=== PATIENT | female | born 1945 | race Caucasian/White ===

== ENCOUNTER 2017-10-10 08:58 | Emergency (ER) | payer MEDICARE ==
[2017-10-10 09:59] LABS: BASO # 0.1 10^3/uL (0.0-0.2); BASO % 0.5 % (0.0-1.0); EOS # 0.1 10^3/uL (0.0-0.50); EOS % 0.6 % (0.0-3.0); HEMATOCRIT 38.5 % (36.0-47.0); HEMOGLOBIN 12.3 g/dl (12.0-15.5); IMMATURE GRANULOCYTE % 0.4 % (0-3.0); LYMPH # 0.4 10^3/uL (1.5-4.5); LYMPH % 4.5 % (24.0-44.0); MEAN CORPUSCULAR HEMOGLOBIN 29.4 pg (27.0-33.0); MEAN CORPUSCULAR HGB CONC 31.9 g/dl (32.0-36.5); MEAN CORPUSCULAR VOLUME 91.9 fl (80.0-96.0); MONO % 11.1 % (0.0-5.0); NEUTROPHILS # 7.7 10^3/uL (1.8-7.7); NEUTROPHILS % 82.9 % (36.0-66.0); PLATELET COUNT, AUTOMATED 246 10^3/uL (150-450); RED BLOOD COUNT 4.19 10^6/uL (4.00-5.40); RED CELL DISTRIBUTION WIDTH 15.9 % (11.5-14.5); WHITE BLOOD COUNT 9.3 10^3/uL (4.0-10.0)
[2017-10-10 10:12] LABS: INR 1.11; PARTIAL THROMBOPLASTIN TIME 24.1 SECONDS (25.4-37.6); PROTHROMBIN TIME 14.4 SECONDS (12.1-14.4)
[2017-10-10 10:18] LABS: ANION GAP 10 MEQ/L (8-16); BLOOD UREA NITROGEN 20 MG/DL (7-18); CALCIUM LEVEL 9.6 MG/DL (8.8-10.2); CARBON DIOXIDE LEVEL 21 MEQ/L (21-32); CHLORIDE LEVEL 112 MEQ/L (98-107); CREATININE FOR GFR 1.31 MG/DL (0.55-1.30); GLOMERULAR FILTRATION RATE 42.5 (>39); GLUCOSE, FASTING 126 MG/DL (70-100); SODIUM LEVEL 143 MEQ/L (136-145)
[2017-10-10] MEDS: RIVAROXABAN 15 MG TAB (XARELTO) PO (12:03)
== END 2017-10-10 12:07 | disposition home or self-care (01) ==
LOC: M ED 08:58
DX: I80.221 Phlebitis and thrombophlebitis of right popliteal vein (principal); I10 Essential (primary) hypertension; M06.9 Rheumatoid arthritis, unspecified; E78.9 Disorder of lipoprotein metabolism, unspecified; Z86.73 Personal history of transient ischemic attack (TIA), and cerebral infarction without residual deficits; Z88.0 Allergy status to penicillin; Z91.041 Radiographic dye allergy status; Z79.899 Other long term (current) drug therapy; Z79.82 Long term (current) use of aspirin
CPT/HCPCS: 93971

== ENCOUNTER 2018-10-23 14:41 | Emergency (ER) | payer MEDICARE ==
[~2018-10-23 14:41] MED LIST: ALEN70TA74 PO; ASPI81TA85 PO; ATOR1TAB19 PO; COLA100C5 PO; FOLI400T PO; LOSA50TA88 PO; METH2.5T48 PO; RISP1SS PO; VITA50005 PO; XARE15TA PO
[2018-10-23] MEDS ORDERED: ONDANSETRON 4MG/2ML VIAL (J2405) IV ONE (15:15)
--- NOTE | 2018-10-23 15:50 | REP ---
Portable chest, 03:24 p.m., single AP view with the the patient sitting: Comparison is 07/17/2009. The lung foster are clear. The cardiac size is normal. The lopez, mediastinum, and skeletal structures are unremarkable. Impression: Negative portable chest. Electronically Signed by Steven Major MD 10/23/2018 03:41 P
--- NOTE | 2018-10-23 15:52 | REP ---
CT of the head without contrast Indication: Vertigo. Comparison: Head CT of 07/17/2009. Technique: Axial CT of the head was performed without contrast. Findings: There is no visible soft tissue swelling or calvarial fracture. There is no evidence of acute intracranial hemorrhage or extra-axial fluid collection. There is right greater than left posterior parietal and occipital encephalomalacia related to remote insult, but new since 2009. Hyperdensity along the left MCA, likely vascular calcification. There is no mass effect or midline shift. The basal cisterns are patent. There is no hydrocephalus. The visualized paranasal sinuses and mastoid air cells are clear. Impression: No acute intracranial hemorrhage or hydrocephalus. 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 Electronically Signed by Jose Rose MD 10/23/2018 03:44 P
[2018-10-23] MEDS ORDERED: LOSA100T50 PO (16:02)
[2018-10-23 16:56] LABS: BASO # 0.1 10^3/uL (0.0-0.2); EOS # 0.2 10^3/uL (0.0-0.50); EOS % 2.6 % (0.0-3.0); HEMATOCRIT 40.1 % (36.0-47.0); HEMOGLOBIN 13.2 g/dl (12.0-15.5); LYMPH # 0.7 10^3/uL (1.5-4.5); LYMPH % 11.7 % (24.0-44.0); MEAN CORPUSCULAR HEMOGLOBIN 31.9 pg (27.0-33.0); MEAN CORPUSCULAR HGB CONC 32.9 g/dl (32.0-36.5); MEAN CORPUSCULAR VOLUME 96.9 fl (80.0-96.0); MONO # 0.6 10^3/uL (0.0-0.8); MONO % 10.4 % (0.0-5.0); NEUTROPHILS # 4.6 10^3/uL (1.8-7.7); PLATELET COUNT, AUTOMATED 170 10^3/uL (150-450); RED BLOOD COUNT 4.14 10^6/uL (4.00-5.40); WHITE BLOOD COUNT 6.2 10^3/uL (4.0-10.0)
[2018-10-23 17:15] LABS: INR 1.08; PROTHROMBIN TIME 13.7 SECONDS (11.8-14.0)
[2018-10-23 17:36] LABS: ALBUMIN 3.2 GM/DL (3.2-5.2); ALT/SGPT 60 U/L (12-78); BILIRUBIN,DIRECT 0.2 MG/DL (0.0-0.2); BILIRUBIN,TOTAL 0.4 MG/DL (0.2-1.0); BLOOD UREA NITROGEN 16 MG/DL (7-18); CALCIUM LEVEL 9.8 MG/DL (8.8-10.2); CARBON DIOXIDE LEVEL 26 MEQ/L (21-32); CHLORIDE LEVEL 113 MEQ/L (98-107); CK-MB VALUE MASS < 1.0 NG/ML (<3.6); CPK CREATINE PHOSPHOKINASE 24 U/L (26-192); GLOMERULAR FILTRATION RATE 57.9 (>39); GLUCOSE, FASTING 106 MG/DL (70-100); MB/CK RELATIVE INDEX 4.17 (< OR =4); SODIUM LEVEL 148 MEQ/L (136-145); TROPONIN I < 0.02 NG/ML (< 0.10)
[2018-10-23] MEDS ORDERED: MECL-68 PO (18:26)
--- NOTE | 2018-10-23 19:32 | ECGEPIP ---
[facility] - ED Test Date: 2018-10-23 Pat Name: ANGIE CUBA Department: Room: - Gender: Female Staff Field Engineer: guero : 1945 Requested By: Shanti Mina Order Number: [id number] Reading MD: Gal Alves Measurements Intervals [place] Rate: 60 P: 70 [place]: 219 QRS: 5 QRSD: 104 T: 47 QT: 421 QTc: 421 Interpretive Statements SINUS RHYTHM WITH FIRST DEGREE AV BLOCK INCOMPLETE RIGHT BUNDLE BRANCH BLOCK NONSPECIFIC ST & T-WAVE ABNORMALITY NO PRIORS FOR COMPARISON Electronically Signed on 10-23-2018 19:32:43 EDT by Gal Alves
--- NOTE | 2018-10-23 19:50 | REPVR ---
EXAM: MR Head Without Contrast EXAM DATE/TIME: 10/23/2018 7:29 PM CLINICAL HISTORY: 73 years old, female; Pain; Other: Base of skull and top of c-spine; Patient HX: Overall states doesnt feel well; Additional info: Vertigo h/o CVA TECHNIQUE: Imaging protocol: MR of the head without contrast. COMPARISON: CT Head without contrast 10/23/2018 3:08 PM FINDINGS: Brain: No acute infarct identified on the diffusion weighted imaging. The brain demonstrates mild generalized volume loss. No significant white matter disease for the patient's age; a few patchy foci of increased signal intensity in the deep and subcortical white matter most likely representing mild chronic small vessel ischemic change. There are chronic, bilateral transcortical occipital infarcts. Ventricles: No significant ventriculomegaly. The ventricles appear enlarged in keeping with volume loss. Bones/joints: Moderate degenerative changes at C1-2. Soft tissues: Unremarkable. Sinuses: Retention cyst or polyp in the left maxillary sinus. Mastoid air cells: Trace left mastoid effusion. Orbits: Unremarkable. IMPRESSION: No evidence of acute infarct. Electronically signed by: Maty Nayak On 10/23/2018 19:50:09 PM
--- NOTE | 2018-10-23 19:58 | REPVR ---
EXAM: MR Angiogram Head Without Contrast, Arteries EXAM DATE/TIME: 10/23/2018 7:29 PM CLINICAL HISTORY: 73 years old, female; Pain; Other: Base of skull and top of c-spine; Patient HX: PT states overall not feeling well; Additional info: Vertigo h/o CVA TECHNIQUE: Imaging protocol: MR angiogram head without contrast. Exam focused on the arteries. 3D rendering: MIP reconstructed images were created and reviewed. COMPARISON: MRI BRAIN W/O CONTRAST 10/23/2018 6:56:52 PM FINDINGS: Right internal carotid artery: Unremarkable. Intracranial segment is patent with no significant stenosis. No aneurysm. Right anterior cerebral artery: Unremarkable. No occlusion or significant stenosis. No aneurysm. Right middle cerebral artery: Unremarkable. No occlusion or significant stenosis. No aneurysm. Right posterior cerebral artery: The right posterior cerebral artery demonstrates a mild segmental stenosis in the P1 segment. There is occlusion in the proximal P2 segment. Right vertebral artery: The right vertebral artery appears nearly occluded at the skull base. Flow-related enhancement of a right PICA is seen. There is a low origin of the right PICA. There is retrograde filling of the distal and mid V4 segment of the right vertebral artery. Left internal carotid artery: Unremarkable. Intracranial segment is patent with no significant stenosis. No aneurysm. Left anterior cerebral artery: Unremarkable. No occlusion or significant stenosis. No aneurysm. Left middle cerebral artery: Unremarkable. No occlusion or significant stenosis. No aneurysm. Left posterior cerebral artery: The left posterior cerebral artery demonstrates a moderate segmental stenosis in the P1 segment. There is occlusion in the mid P2 segment. Probably some diminutive branch reconstitution distally. Left vertebral artery: The left vertebral artery is dominant. Patent. Basilar artery: Unremarkable. No occlusion or significant stenosis. No aneurysm. IMPRESSION: 1. No acute arterial occlusion identified. 2. 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 3. Near occlusion of the right vertebral artery at the skull base, age indeterminate, could be chronic. Flow related enhancement of a right PICA is seen. There is retrograde filling of the distal and mid V4 segment of the right vertebral artery. Electronically signed by: Maty Nayak On 10/23/2018 19:57:56 PM
[2018-10-23 20:01] VITALS: BP 167/73
== END 2018-10-23 20:31 | disposition home or self-care (01) ==
LOC: M ED 14:41 → EDBD 14:41 → M ED 20:31
DX: R42 Dizziness and giddiness (principal); I45.10 Unspecified right bundle-branch block; I10 Essential (primary) hypertension; M06.9 Rheumatoid arthritis, unspecified; Z79.899 Other long term (current) drug therapy; Z79.82 Long term (current) use of aspirin; Z88.0 Allergy status to penicillin; Z88.1 Allergy status to other antibiotic agents; Z88.2 Allergy status to sulfonamides; Z91.041 Radiographic dye allergy status
CPT/HCPCS: 36415; 70450; 70544; 70551; 71045; 80048; 80076; 82550; 82553; 84443; 84484; 85025; 85610; 93005; 93041; 94760; 96374; 99285; J2405

== ENCOUNTER → 2019-03-05 | Outpatient (REF) | payer MEDICARE ==
[~2019-03-05] MED LIST changes: +LOSA100T50 PO; +MECL1TAB31 PO
[2019-03-05 18:45] LABS: PERCENT SATURATION 24.5 % (13.2-45.0)
== END ==
LOC: M LAB REF 16:32
PROVIDERS: ATTEND Internal Medicine
DX: R63.4 Abnormal weight loss (principal); M06.9 Rheumatoid arthritis, unspecified

== ENCOUNTER 2019-11-14 03:10 | Emergency (ER) | payer MEDICARE ==
[~2019-11-14] VITALS: Ht 160 cm; Wt 56.8 kg
[~2019-11-14 03:10] MED LIST changes: -ASPI81TA85 PO; +ASPI81TA86 PO
[2019-11-14] MEDS ORDERED: CITA20TA6 (03:26)
[2019-11-14] MEDS ORDERED: ATEN25TA (03:26)
[2019-11-14 04:10] LABS: BASO # 0.1 10^3/uL (0.0-0.2); BASO % 0.7 % (0.0-1.0); EOS # 0.3 10^3/uL (0.0-0.5); HEMATOCRIT 44.2 % (36.0-47.0); HEMOGLOBIN 13.9 g/dl (12.0-15.5); LYMPH # 1.1 10^3/uL (1.5-5.0); LYMPH % 7.6 % (24.0-44.0); MEAN CORPUSCULAR HEMOGLOBIN 30.6 pg (27.0-33.0); MEAN CORPUSCULAR HGB CONC 31.4 g/dl (32.0-36.5); MEAN CORPUSCULAR VOLUME 97.4 fl (80.0-96.0); MONO # 1.2 10^3/uL (0.0-0.8); MONO % 8.5 % (0.0-5.0); NEUTROPHILS # 11.1 10^3/uL (1.5-8.5); NEUTROPHILS % 80.8 % (36.0-66.0); PLATELET COUNT, AUTOMATED 145 10^3/uL (150-450); RED BLOOD COUNT 4.54 10^6/uL (4.00-5.40); WHITE BLOOD COUNT 13.7 10^3/uL (4.0-10.0)
[2019-11-14] MEDS ORDERED: KETOROLAC 30 MG/ML 1ML VIAL IV ONE (04:15)
[2019-11-14] MEDS ORDERED: ONDANSETRON 4MG/2ML VIAL IV ONE (04:15)
[2019-11-14 05:24] LABS: ALBUMIN 3.1 GM/DL (3.2-5.2); BILIRUBIN,DIRECT 1.4 MG/DL (0.0-0.2); BILIRUBIN,TOTAL 3.3 MG/DL (0.2-1.0); TOTAL PROTEIN 6.3 GM/DL (6.4-8.2)
--- NOTE | 2019-11-14 08:00 | REPVR ---
PROCEDURE INFORMATION: Exam: US Abdomen, Limited; Right Upper Quadrant Exam date and time: 11/14/2019 7:42 AM Age: 74 years old Clinical indication: Abdominal pain; Epigastric; Additional info: Upper abd pain, pancreatitis TECHNIQUE: Imaging protocol: US abdomen. Real time ultrasound with image documentation. Limited exam focused on the right upper quadrant. COMPARISON: No relevant prior studies available. FINDINGS: Liver: The liver is normal in size and echotexture. There are a couple of echogenic lesions measuring 1.8 x 1.2 x 1.5 cm in the left lobe and 1.2 x 1.3 x 1.1 cm in the right lobe most consistent with hemangiomas. Echogenic metastasis should also be considered in the differential. There is a 5 mm anechoic simple cyst in the right lobe of the liver. Gallbladder: The gallbladder is markedly distended measuring 9.6 x 4.5 x 4.1 cm in dimensions. There are multiple small echogenic shadowing gallstones and without wall thickening or pericholecystic fluid. There is a positive sonographic De La Cruz sign. If there is a clinical concern for acute cholecystitis, HIDA scan may be considered for further evaluation. Common bile duct: The CBD is mildly dilated measuring 6.7 mm. There is mild intrahepatic biliary dilatation. Pancreas: The pancreas is obscured by overlying bowel gas limiting evaluation. Right kidney: The right kidney is normal in size without evidence for calculus or hydronephrosis. The right kidney measures 8.8 cm in length.There is renal cortical thinning and increased cortical echogenicity consistent with chronic medical renal disease. Intraperitoneal space: There is no evidence of free intraperitoneal fluid. IMPRESSION: 1. The liver is normal in size and echotexture. There are a couple of echogenic lesions measuring 1.8 x 1.2 x 1.5 cm in the left lobe and 1.2 x 1.3 x 1.1 cm in the right lobe most consistent with hemangiomas. Echogenic metastasis should also be considered in the differential. There is a 5 mm anechoic simple cyst in the right lobe of the liver. 2. The gallbladder is markedly distended measuring 9.6 x 4.5 x 4.1 cm in dimensions. There are multiple small echogenic shadowing gallstones and without wall thickening or pericholecystic fluid. There is a positive sonographic De La Cruz sign. If there is a clinical concern for acute cholecystitis, HIDA scan may be considered for further evaluation. Electronically signed by: Anthony Ellison On 11/14/2019 07:59:23 AM
[2019-11-14 11:05] LABS: BILIRUBIN,DIRECT 0.9 MG/DL (0.0-0.2); BILIRUBIN,TOTAL 1.9 MG/DL (0.2-1.0); TOTAL PROTEIN 5.9 GM/DL (6.4-8.2)
[2019-11-14 11:21] VITALS: BP 168/77
--- NOTE | 2019-11-14 13:21 | ECGEPIP ---
[facility] - ED Test Date: 2019-11-14 Pat Name: ANGIE CUBA Department: Room: - Gender: Female Electronic Sales And Service Technician: earle : 1945 Requested By: SELENA Ghosh Order Number: [id number] Reading MD: Shanti Mina Measurements Intervals [place] Rate: 63 P: 70 [place]: 208 QRS: 5 QRSD: 96 T: 55 QT: 406 QTc: 417 Interpretive Statements SINUS RHYTHM INCOMPLETE RIGHT BUNDLE BRANCH BLOCK similar to prior EKG 10/23/18 Electronically Signed on 11-14-2019 13:21:16 EDT by Shanti Mina
--- NOTE | 2019-11-14 15:08 | ED PDOC ---
Post-Departure Follow-Up radiology report faxed to Shanti Day MD Nov 14, 2019 15:08
[2019-11-15] MEDS ORDERED: DOK1CAP7 (07:54)
[2019-11-15] MEDS ORDERED: MECL-86 (07:54)
== END 2019-11-14 11:31 | disposition home or self-care (01) ==
LOC: M ED 03:10
DX: K85.00 Idiopathic acute pancreatitis without necrosis or infection (principal); I45.19 Other right bundle-branch block; I10 Essential (primary) hypertension; M06.9 Rheumatoid arthritis, unspecified; K76.89 Other specified diseases of liver; Z79.82 Long term (current) use of aspirin; Z79.899 Other long term (current) drug therapy; Z91.041 Radiographic dye allergy status; Z88.0 Allergy status to penicillin; Z88.2 Allergy status to sulfonamides
CPT/HCPCS: 76705; 80047; 80076; 83690; 85025; 93005; 96374; 96375; 99284; J1885; J2405

== ENCOUNTER 2019-11-15 07:44 | Emergency (ER) | payer MEDICARE ==
[~2019-11-15] VITALS: Ht 160 cm; Wt 57.3 kg
[~2019-11-15 07:44] MED LIST changes: +ATEN25TA; +CITA20TA6
[2019-11-15] MEDS ORDERED: DOK1CAP7 (07:54)
[2019-11-15] MEDS ORDERED: MECL-86 (07:54)
[2019-11-15 08:28] LABS: BASO % 0.3 % (0.0-1.0); EOS # 0.1 10^3/uL (0.0-0.5); EOS % 0.4 % (0.0-3.0); HEMATOCRIT 39.4 % (36.0-47.0); HEMOGLOBIN 12.7 g/dl (12.0-15.5); LYMPH # 0.6 10^3/uL (1.5-5.0); LYMPH % 4.5 % (24.0-44.0); MEAN CORPUSCULAR HEMOGLOBIN 31.1 pg (27.0-33.0); MEAN CORPUSCULAR HGB CONC 32.2 g/dl (32.0-36.5); MEAN CORPUSCULAR VOLUME 96.3 fl (80.0-96.0); MONO # 0.7 10^3/uL (0.0-0.8); MONO % 5.8 % (0.0-5.0); NEUTROPHILS # 11.2 10^3/uL (1.5-8.5); NEUTROPHILS % 88.2 % (36.0-66.0); PLATELET COUNT, AUTOMATED 117 10^3/uL (150-450); RED BLOOD COUNT 4.09 10^6/uL (4.00-5.40); WHITE BLOOD COUNT 12.7 10^3/uL (4.0-10.0)
[2019-11-15 09:08] LABS: ALBUMIN 2.7 GM/DL (3.2-5.2); ALT/SGPT 70 U/L (12-78); BILIRUBIN,DIRECT 0.7 MG/DL (0.0-0.2); BILIRUBIN,TOTAL 1.8 MG/DL (0.2-1.0); BLOOD UREA NITROGEN 20 MG/DL (7-18); CALCIUM LEVEL 8.9 MG/DL (8.8-10.2); CARBON DIOXIDE LEVEL 27 MEQ/L (21-32); CHLORIDE LEVEL 111 MEQ/L (98-107); CREATININE FOR GFR 0.86 MG/DL (0.55-1.30); GLOMERULAR FILTRATION RATE > 60.0 (>39); GLUCOSE, FASTING 105 MG/DL (70-100); LIPASE 1781 U/L (73-393); POTASSIUM SERUM 4.2 MEQ/L (3.5-5.1); SODIUM LEVEL 143 MEQ/L (136-145); TOTAL PROTEIN 5.6 GM/DL (6.4-8.2)
[2019-11-15 09:30] VITALS: BP 152/70
== END 2019-11-15 09:34 | disposition home or self-care (01) ==
LOC: M ED 07:44
DX: K85.10 Biliary acute pancreatitis without necrosis or infection (principal); I10 Essential (primary) hypertension; E78.5 Hyperlipidemia, unspecified; K21.9 Gastro-esophageal reflux disease without esophagitis; K57.92 Diverticulitis of intestine, part unspecified, without perforation or abscess without bleeding; Z86.73 Personal history of transient ischemic attack (TIA), and cerebral infarction without residual deficits; Z79.82 Long term (current) use of aspirin; Z79.899 Other long term (current) drug therapy; Z91.041 Radiographic dye allergy status; Z88.0 Allergy status to penicillin; Z88.2 Allergy status to sulfonamides

== ENCOUNTER → 2020-01-18 | Outpatient (REF) | payer MEDICARE ==
[~2020-01-18] MED LIST changes: +DOK1CAP7; +MECL-86
[2020-01-18 12:21] LABS: AMYLASE 97 U/L (25-115); LIPASE 206 U/L (73-393)
== END ==
LOC: M LAB REF 11:12
PROVIDERS: ATTEND Internal Medicine
DX: K85.90 Acute pancreatitis without necrosis or infection, unspecified (principal); K80.80 Other cholelithiasis without obstruction

== ENCOUNTER 2020-06-08 18:43 | Emergency (ER) | payer MEDICARE ==
[~2020-06-08 18:43] MED LIST changes: -ALEN70TA74 PO; +ALEN70TA82 PO; -FOLI400T PO; +FOLI400T13 PO
--- NOTE | 2020-06-08 19:32 | REP ---
INDICATION: CHEST PAIN. COMPARISON: 10/23/2018 the latest prior FINDINGS: The technique utilized in obtaining the radiograph has magnified the cardiac silhouette and accentuated the interstitial markings. The superior mediastinal structures are midline. The cardiac silhouette is again seen to be enlarged with left ventricular configuration.. The diaphragmatic surfaces of the lungs are regular, and the costophrenic angles are clear. The pulmonary foster are clear. The imaged osseous structures are intact. IMPRESSION: Cardiomegaly without evidence of acute cardiopulmonary disease. <Electronically signed by Laurent Poole > 06/08/20 [id number]
[2020-06-08 19:44] LABS: BASO # 0.1 10^3/uL (0.0-0.2); BASO % 1.3 % (0.0-1.0); EOS # 0.2 10^3/uL (0.0-0.5); HEMOGLOBIN 11.8 g/dl (12.0-15.5); LYMPH # 0.7 10^3/uL (1.5-5.0); LYMPH % 19.2 % (24.0-44.0); MEAN CORPUSCULAR HGB CONC 31.1 g/dl (32.0-36.5); MEAN CORPUSCULAR VOLUME 96.7 fl (80.0-96.0); MONO # 0.4 10^3/uL (0.0-0.8); MONO % 10.2 % (2.0-8.0); NEUTROPHILS # 2.5 10^3/uL (1.5-8.5); NEUTROPHILS % 64.3 % (36.0-66.0); RED BLOOD COUNT 3.93 10^6/uL (4.00-5.40); WHITE BLOOD COUNT 3.8 10^3/uL (4.0-10.0)
[2020-06-08 20:00] LABS: PLATELET COUNT, AUTOMATED 75 10^3/uL (150-450)
[2020-06-08 20:36] LABS: ALBUMIN 2.9 GM/DL (3.2-5.2); ALT/SGPT 30 U/L (12-78); BILIRUBIN,DIRECT < 0.1 MG/DL (0.0-0.2); BILIRUBIN,TOTAL 0.5 MG/DL (0.2-1.0); BLOOD UREA NITROGEN 17 MG/DL (7-18); CARBON DIOXIDE LEVEL 29 MEQ/L (21-32); CHLORIDE LEVEL 114 MEQ/L (98-107); CK-MB VALUE MASS < 1.0 NG/ML (<3.6); CPK CREATINE PHOSPHOKINASE 73 U/L (26-192); CREATININE FOR GFR 0.75 MG/DL (0.55-1.30); FREE T4 1.11 NG/DL (0.76-1.46); GLOMERULAR FILTRATION RATE > 60.0 (>39); GLUCOSE, FASTING 100 MG/DL (70-100); LIPASE 157 U/L (73-393); MB/CK RELATIVE INDEX 1.37 (< OR =4); POTASSIUM SERUM 4.5 MEQ/L (3.5-5.1); SODIUM LEVEL 144 MEQ/L (136-145); TOTAL PROTEIN 5.6 GM/DL (6.4-8.2); TROPONIN I 0.02 NG/ML (< 0.10)
[2020-06-08] MEDS ORDERED: ONDANSETRON 4 MG ORAL DISINTEGRATING TAB PO ONE (21:20)
[2020-06-08] MEDS ORDERED: MECLIZINE 25 MG TABLET PO ONE (21:20)
[2020-06-08] MEDS ORDERED: ONDA4TAB6 PO (21:59)
[2020-06-08 22:00] VITALS: BP 177/83
--- NOTE | 2020-06-09 19:47 | ECGEPIP ---
[facility] - ED Test Date: 2020-06-08 Pat Name: ANGIE CUBA Department: Room: - Gender: Female Residential Advisor: : 1945 Requested By: Princess Myers Order Number: [id number] Reading MD: Shanti Mina Measurements Intervals [place] Rate: 69 P: 73 [place]: 232 QRS: 39 QRSD: 86 T: 80 QT: 414 QTc: 443 Interpretive Statements Sinus rhythm with 1st degree AV block NSTTW abnormalities Electronically Signed on 06-09-2020 19:48:22 EDT by Shanti Mina
== END 2020-06-08 22:15 | disposition home or self-care (01) ==
LOC: EDBD 18:43 → M ED 18:43
DX: R42 Dizziness and giddiness (principal); I44.0 Atrioventricular block, first degree; I51.7 Cardiomegaly; I10 Essential (primary) hypertension; K57.92 Diverticulitis of intestine, part unspecified, without perforation or abscess without bleeding; Z86.73 Personal history of transient ischemic attack (TIA), and cerebral infarction without residual deficits; Z79.82 Long term (current) use of aspirin; Z79.899 Other long term (current) drug therapy; Z88.0 Allergy status to penicillin; Z88.2 Allergy status to sulfonamides; Z91.041 Radiographic dye allergy status
CPT/HCPCS: 71045; 80048; 80076; 82550; 82553; 83690; 84439; 84443; 84484; 85025; 85049; 85055; 93005; 93041; 94760; 99285; Q0162

== ENCOUNTER → 2020-07-26 | Outpatient (CLI) | payer MEDICARE ==
[~2020-07-26] MED LIST changes: +ONDA4TAB6 PO
--- NOTE | 2020-07-26 10:32 | DEXAMM ---
INDICATION: M81.0 AGE RELATED OSTEOPOROSIS. COMPARISON: 05/27/2017 and 07/20/2008. TECHNIQUE: Bone density was measured using dual-energy x-ray absorptiometry (DEXA). FINDINGS: AP SPINE L1-L4 BMD 0.989 g/cm2 Young Adult T-Score -1.7 Age Matched Z-Score 0.1. LT FEMUR, TOTAL BMD 0.582 g/cm2 Young Adult T-Score -3.4 Age Matched Z-Score -1.7. LT NECK BMD 0.553 g/cm2 Young Adult T-Score -3.5 Age Matched Z-Score -1.6. RT FEMUR, TOTAL BMD 0.493 g/cm2 Young Adult T-Score -4.1 Age Matched Z-Score -2.4. RT NECK BMD 0.418 g/cm2 Young Adult T-Score -4.5 Age Matched Z-Score -2.5. IMPRESSION: There is low bone density of the spine. There is osteoporosis of the left hip. There is osteoporosis of the right hip. The density of the spine has increased 15.5% since the initial exam on 07/20/2008. The density of the spine decreased 3.8% since most recent exam on 05/27/2017. The density of the left hip has increased 30.2% since initial exam on 07/20/2008. The density of the left hip has decreased 2.7% since most recent exam on 05/27/2017. The density of the right hip has increased 16.0% since the initial exam on 07/20/2008. The density of the right hip has decreased 20.1% since the most recent exam on 05/27/2017. FOLLOW-UP: Recommendation for the next bone density exam: 2 years. <Electronically signed by Steven Woods > 07/26/20 [id number]
== END ==
LOC: M WHC 07:41
PROVIDERS: ATTEND Internal Medicine
DX: M81.0 Age-related osteoporosis without current pathological fracture (principal); M85.88 Other specified disorders of bone density and structure, other site

== ENCOUNTER → 2020-07-28 | Outpatient (REF) | payer MEDICARE | LOC: M LAB REF 11:07 | PROVIDERS: ATTEND Internal Medicine | DX: M81.0 Age-related osteoporosis without current pathological fracture (principal) ==

== ENCOUNTER 2020-09-11 10:07 | Emergency (ER) | payer MEDICARE ==
[~2020-09-11] VITALS: Ht 157.5 cm; Wt 59.5 kg
[2020-09-11] MEDS ORDERED: ERGO500029 (10:18)
[2020-09-11 12:15] VITALS: BP 171/78
== END 2020-09-11 12:32 | disposition home or self-care (01) ==
LOC: M ED 10:07
DX: I10 Essential (primary) hypertension (principal); Z86.73 Personal history of transient ischemic attack (TIA), and cerebral infarction without residual deficits; E78.5 Hyperlipidemia, unspecified; F41.9 Anxiety disorder, unspecified; K57.92 Diverticulitis of intestine, part unspecified, without perforation or abscess without bleeding; Z79.82 Long term (current) use of aspirin; Z79.899 Other long term (current) drug therapy; Z91.041 Radiographic dye allergy status; Z88.0 Allergy status to penicillin; Z88.2 Allergy status to sulfonamides

== ENCOUNTER 2021-01-06 04:52 | Emergency (ER) | payer MEDICARE ==
[~2021-01-06] VITALS: Ht 160 cm; Wt 60.0 kg
[~2021-01-06 04:52] MED LIST changes: +DOK1CAP4; -DOK1CAP7; +ERGO500029
--- OUTSIDE RECORDS SUMMARY | 2021-01-06 04:58 | CCD | Continuity of Care Document ---
Author Author Екатерина THOMPSON P.A.-C. Organization Unknown Address [address] [place] [address] Phone [phone] Care Team Providers Care Central Sterilization Technician Name Role Phone Svetlana Bynum D.O. AUTM [phone] Problems Active Problems Provider Date Ischemic stroke Maurice Sawyer M.D. Onset: 10/19/2013 Loss of part of visual field Maurice Sawyer M.D. Onset: 09/25 Tension-type headache Maurice Sawyer M.D. Onset: 10/19/2013 Social History Type Date Description Comments Sex Unknown ETOH Use Denies alcohol use Tobacco Use Start: Unknown Patient has never smoked Recreational Drug Use Never Used Drugs Allergies, Adverse Reactions, Alerts Active Allergies Criticality Reaction | Severity Comments Date Penicillins Unable to assess criticality 10/19/2013 Sulfa Antibiotics Unable to assess criticality 10/19/2013 Aspirin Unable to assess criticality 325 mg cause s GI distress 10/21/2016 Gadolinium Unable to assess criticality rash 10/21/2016 Flu Virus Vaccine Unable to assess criticality 10/21/2016 Inactive Allergies NKDA Unable to assess criticality 10/19/2013 Medications Active Medications SIG Qnty Indications Ordering Provide r Date Meclizine HCL 25mg Tablets Take One Tablet By Mouth Three Times A Day as Needed For Dizziness 60tabs R42 Lidya Judd M.D. 11/08/2019 Losartan Potassium 25mg Tablets 1 po qd Maurice Sawyer M.D. 05/19/2014 Aspirin Ec 81mg Tablets DR 1 by mouth qday. 100tabs Unknown Atorvastatin Calcium 10mg Tablets 1 by mouth every day 90tabs Unknown Immunizations Description No Information Available Vital Signs Date Vital Result Comment 11/07/2020 6:37am BP Systolic 118 mmHg BP Diastolic 80 mmHg Heart Rate 64 /min Respiratory Rate 16 /min 11/08/2019 7:26am BP Systolic 122 mmHg BP Diastolic 80 mmHg Heart Rate 52 /min Respiratory Rate 16 /min Weight 123.50 lb Results Description No Information Available Procedures Date Code Description Status 11/07/2020 26008 Office/Outpatient Established Mo d MDM 30-39 Min Completed Medical Devices Description No Information Available Encounters Type Date Location Provider Dx Diagnosis Office Visit 11/07/2020 9:00a [facility] Melva jack P.A.-C. I63.531 Cereb infrc d/t unsp occls or stenos of right post cereb art H53.8 Other visual disturbances R42 Dizziness and giddiness Assessments Date Code Description Provider 11/07/2020 I63.531 Cerebral infarction due to unspe cified occlusion or stenosis Melva Thompson P.A.-C. 11/07/2020 H53.8 Other visual disturbances Melva Thompson P.A.-C. 11/07/2020 R42 Dizziness and giddiness Melva Thompson P.A.-C. Plan of Treatment Future Appointment(s):* 11/07/2021 8:00 am - Melva Thompson P.A.-C. at [facility] 11/07/2020 - Melva Thompson P.A.-C.* I63.531 Cerebral infarction due to unspecified occlusion or stenosis* Comments:* Schedule MRI/MRA brain. She continues aspirin. * H53.8 Other visual disturbances* Comments:* Follow up with ophthalmology. * R42 Dizziness and giddiness* Comments:* Continue meclizine as needed. Schedule MRA brain. * Follow up:* 1 year. Functional Status Description No Information Available Mental Status Description No Information Available Referrals Description No Information Available"
--- OUTSIDE RECORDS SUMMARY | 2021-01-06 04:58 | CCD ---
Author Author [facility] Organization [facility] Address Unknown Phone Unavailable Care Team Providers Care Bridal Consultant Name Role Phone Fletcher, Svetlana DO Unavailable Unavailable Fletcher, Svetlana DO Unavailable Unavailable Fletcher, Svetlana DO Unavailable Unavailable Fletcher, Svetlana DO Unavailable Unavailable Fletcher, Svetlana DO Unavailable Unavailable Fletcher, Svetlana DO Unavailable Unavailable Fletcher, Svetlana DO Unavailable Unavailable Fletcher, Svetlana DO Unavailable Unavailable Fletcher, Svetlana DO Unavailable Unavailable Fletcher, Svetlana DO Unavailable Unavailable Fletcher, Svetlana DO Unavailable Unavailable Fletcher, Svetlana DO Unavailable Unavailable Fletcher, Svetlana DO Unavailable Unavailable Fletcher, Svetlana DO Unavailable Unavailable Fletcher, Svetlana DO Unavailable Unavailable Fletcher, Svetlana DO Unavailable Unavailable Fletcher, Svetlana DO Unavailable Unavailable Fletcher, Svetlana DO Unavailable Unavailable Fletcher, Svetlana DO Unavailable Unavailable Fletcher, Svetlana DO Unavailable Unavailable Fletcher, Svetlana DO Unavailable Unavailable Fletcher, Svetlana DO Unavailable Unavailable Fletcher, Svetlana DO Unavailable Unavailable Fletcher, Svetlana DO Unavailable Unavailable Fletcher, Svetlana DO Unavailable Unavailable Fletcher, Svetlana DO Unavailable Unavailable Fletcher, Svetlana DO Unavailable Unavailable Fletcher, Svetlana DO Unavailable Unavailable Fletcher, Svetlana DO Unavailable Unavailable Fletcher, Svetlana DO Unavailable Unavailable Fletcher, Svetlana DO Unavailable Unavailable Fletcher, Svetlana DO Unavailable Unavailable Fletcher, Svetlana DO Unavailable Unavailable Fletcher, Svetlana DO Unavailable Unavailable Fletcher, Svetlana DO Unavailable Unavailable Fletcher, Svetlana DO Unavailable Unavailable Fletcher, Svetlana DO Unavailable Unavailable Fletcher, Svetlana DO Unavailable Unavailable Fletcher, Svetlana DO Unavailable Unavailable Fletcher, Svetlana DO Unavailable Unavailable Fletcher, Svetlana DO Unavailable Unavailable Fletcher, Svetlana DO Unavailable Unavailable Fletcher, Svetlana DO Unavailable Unavailable Fletcher, Svetlana DO Unavailable Unavailable Fletcher, Svetlana DO Unavailable Unavailable Fletcher, Svetlana DO Unavailable Unavailable Fletcher, Svetlana DO Unavailable Unavailable Fletcher, Svetlana DO Unavailable Unavailable Fletcher, Svetlana DO Unavailable Unavailable Fletcher, Svetlana DO Unavailable Unavailable Fletcher, Svetlana DO Unavailable Unavailable Fletcher, Svetlana DO Unavailable Unavailable Fletcher, Svetlana DO Unavailable Unavailable Fletcher, Svetlana DO Unavailable Unavailable Fletcher, Svetlana DO Unavailable Unavailable Fletcher, Svetlana DO Unavailable Unavailable Fletcher, Svetlana DO Unavailable Unavailable Fletcher, Svetlana DO Unavailable Unavailable Fletcher, Svetlana DO Unavailable Unavailable Fletcher, Svetlana DO Unavailable Unavailable Fletcher, Svetlana DO Unavailable Unavailable Fletcher, Svetlana DO Unavailable Unavailable Fletcher, Svetlana DO Unavailable Unavailable Fletcher, Svetlana DO Unavailable Unavailable Fletcher, Svetlana DO Unavailable Unavailable Fletcher, Svetlana DO Unavailable Unavailable Fletcher, Svetlaan DO Unavailable Unavailable Fletcher, Svetlana DO Unavailable Unavailable Fletcher, Svetlana DO Unavailable Unavailable Fletcher, Svetlana DO Unavailable Unavailable Fletcher, Svetlana DO Unavailable Unavailable Fletcher, Svetlana DO Unavailable Unavailable Fletcher, Svetlana DO Unavailable Unavailable Fletcher, Svetlana DO Unavailable Unavailable Trickey, J Melva PA Unavailable Unavailable Trickey, J Melva PA Unavailable Unavailable Trickey, J Melva PA Unavailable Unavailable Trickey, J Melva PA Unavailable Unavailable Trickey, J Melva PA Unavailable Unavailable Trickey, J Melva PA Unavailable Unavailable Trickey, J Melva PA Unavailable Unavailable Trickey, J Melva PA Unavailable Unavailable Trickey, J Melva PA Unavailable Unavailable Trickey, J Melva PA Unavailable Unavailable Trickey, J Melva PA Unavailable Unavailable Trickey, J Melva PA Unavailable Unavailable Trickey, J Melva PA Unavailable Unavailable Trickey, J Melva PA Unavailable Unavailable Trickey, J Melva PA Unavailable Unavailable Trickey, J Melva PA Unavailable Unavailable Trickey, J Melva PA Unavailable Unavailable Trickey, J Melva PA Unavailable Unavailable Trickey, J Melva PA Unavailable Unavailable Trickey, J Melva PA Unavailable Unavailable Trickey, J Melva PA Unavailable Unavailable Trickey, J Melva PA Unavailable Unavailable Trickey, J Melva PA Unavailable Unavailable Trickey, J Melva PA Unavailable Unavailable Trickey, J Melva PA Unavailable Unavailable Trickey, J Melva PA Unavailable Unavailable Trickey, J Melva PA Unavailable Unavailable Trickey, J Melva PA Unavailable Unavailable Trickey, J Melva PA Unavailable Unavailable Trickey, J Melva PA Unavailable Unavailable Trickey, J Melva PA Unavailable Unavailable Trickey, J Melva PA Unavailable Unavailable Trickey, J Melva PA Unavailable Unavailable Trickey, J Melva PA Unavailable Unavailable Trickey, J Melva PA Unavailable Unavailable Trickey, J Melva PA Unavailable Unavailable Trickey, J Melva PA Unavailable Unavailable Trickey, J Melva PA Unavailable Unavailable Trickey, J Melva PA Unavailable Unavailable Trickey, J Melva PA Unavailable Unavailable Trickey, J Melva PA Unavailable Unavailable Trickey, J Melva PA Unavailable Unavailable Trickey, J Melva PA Unavailable Unavailable Trickey, J Melva PA Unavailable Unavailable Trickey, J Melva PA Unavailable Unavailable Trickey, J Melva PA Unavailable Unavailable Trickey, J Melva PA Unavailable Unavailable Trickey, J Melva PA Unavailable Unavailable Trickey, J Melva PA Unavailable Unavailable Re-disclosure Warning The records that you are about to access may contain information from federally-assisted alcohol or drug abuse programs. If such information is present, then the following federally mandated warning applies: This information has been disclosed to you from records protected by federal confidentiality rules (42 CFR part 2). The federal rules prohibit you from making any further disclosure of this information unless further disclosure is expressly permitted by the written consent of the person to whom it pertains or as otherwise permitted by 42 CFR part 2. A general authorization for the release of medical or other information is NOT sufficient for this purpose. The Federal rules restrict any use of the information to criminally investigate or prosecute any alcohol or drug abuse patient.The records that you are about to access may contain highly sensitive health information, the redisclosure of which is protected by Article 27-F of the [facility] Public Health law. If you continue you may have access to information: Regarding HIV / AIDS; Provided by facilities licensed or operated by the [facility] Office of Mental Health; or Provided by the [facility] Office for People With Developmental Disabilities. If such information is present, then the following [place] State mandated warning applies: This information has been disclosed to you from confidential records which are protected by state law. State law prohibits you from making any further disclosure of this information without the specific written consent of the person to whom it pertains, or as otherwise permitted by law. Any unauthorized further disclosure in violation of state law may result in a fine or mcc sentence or both. A general authorization for the release of medical or other information is NOT sufficient authorization for further disc losure. Encounters Encounter Providers Location Date Indications Data Source(s ) Outpatient Attender: Melva [facility] 11/07/2020 09:00:00 AM EDT [facility] ([facility]) Outpatient Attender: Svetlana Gaines 07/28 08:40:00 AM EDT [facility] ([facility] ) Outpatient Attender: Svetlana Gaines 07/14 08:00:00 AM EDT [facility] ([facility] ) Outpatient Attender: Svetlana Gaines 01/17 07:20:00 AM EST [facility] ([facility] ) Outpatient Attender: Melva [facility] 11/08/2019 09:00:00 AM EDT [facility] ([facility]) Immunizations Vaccine Date Status Description Data Source(s) COVID-19 VACCINE Moderna 06/05/2020 12:00:00 AM EDT completed [facility] Vaccine Series Complete: YESThis Data wa s Submitted to [facility] Via [facility]. COVID-19 VACCINE, [id number], LNP-S (MODERNA)/PF 06/05/2020 1 2:00:00 AM EDT completed [facility] COVID-19 VACCINE Moderna 05/08/2020 12:00:00 AM EDT completed [facility] Vaccine Series Complete: NOThis Data was Submitted to [facility] Via [employer]. COVID-19 VACCINE, [id number], LNP-S (MODERNA)/PF 05/08/2020 1 2:00:00 AM EDT completed [facility] Medications Medication Brand Name Start Date Product Form Dose Route Admi nistrative Instructions Pharmacy Instructions Status Indications Reaction Description Data Source(s) 100 mg 11/21/2020 12:00:00 AM EDT capsule 60 TAKE ONE CAPSULE BY MOUTH TWICE A DAY TAKE ONE CAPSULE BY MOUTH TWICE A DAY SOLD: 11/25/2020 [facility] 100 mg 11/21/2020 12:00:00 AM EDT capsule 60 TAKE ONE CAPSULE BY MOUTH TWICE A DAY TAKE ONE CAPSULE BY MOUTH TWICE A DAY SOLD: 12/27/2020 [facility] 75 mg 11/10/2020 12:00:00 AM EDT tablet 30 TAKE ONE TABLET BY MOUTH EVERY DAY TAKE ONE TABLET BY MOUTH EVERY DAY SOLD: 11/10/2020 [facility] 75 mg 11/10/2020 12:00:00 AM EDT tablet 30 TAKE ONE TABLET BY MOUTH EVERY DAY TAKE ONE TABLET BY MOUTH EVERY DAY SOLD: 12/03/2020 [facility] 75 mg 11/10/2020 12:00:00 AM EDT tablet 30 TAKE ONE TABLET BY MOUTH EVERY DAY TAKE ONE TABLET BY MOUTH EVERY DAY SOLD: 12/27/2020 [facility] 2.5 mg 10/26/2020 12:00:00 AM EDT tablet 25 TAKE 5 TABLETS BY MOUTH ONCE EVERY WEEK TAKE 5 TABLETS BY MOUTH ONCE EVERY WEEK SOLD: 11/25/2020 [facility] 2.5 mg 10/26/2020 12:00:00 AM EDT tablet 25 TAKE 5 TABLETS BY MOUTH ONCE EVERY WEEK TAKE 5 TABLETS BY MOUTH ONCE EVERY WEEK SOLD: 10/27/2020 [facility] 1,250 mcg (50,000 unit) 10/26/2020 12:00:00 AM EDT capsule 4 TAKE 1 CAPSULE BY MOUTH ONCE EVERY 2 WEEKS TAKE 1 CAPSULE BY MOUTH ONCE EVERY 2 WEEKS SOLD: 10/27/2020 [facility] 1,250 mcg (50,000 unit) 10/26/2020 12:00:00 AM EDT capsule 4 TAKE 1 CAPSULE BY MOUTH ONCE EVERY 2 WEEKS TAKE 1 CAPSULE BY MOUTH ONCE EVERY 2 WEEKS SOLD: 12/27/2020 [facility] Citalopram 20 MG Oral Tablet CITALOPRAM HYDROBROMIDE 10/24/2020 12:00:00 AM EDT tablet 30 TAKE ONE TABLET BY MOUTH EVERY D AY TAKE ONE TABLET BY MOUTH EVERY DAY SOLD: 10/27/2020 [facility] Citalopram 20 MG Oral Tablet CITALOPRAM HYDROBROMIDE 10/24/2020 12:00:00 AM EDT tablet 30 TAKE ONE TABLET BY MOUTH EVERY D AY TAKE ONE TABLET BY MOUTH EVERY DAY SOLD: 12/27/2020 [facility] Citalopram 20 MG Oral Tablet CITALOPRAM HYDROBROMIDE 10/24/2020 12:00:00 AM EDT tablet 30 TAKE ONE TABLET BY MOUTH EVERY D AY TAKE ONE TABLET BY MOUTH EVERY DAY SOLD: 11/25/2020 [facility] atorvastatin 10 MG Oral Tablet ATORVASTATIN CALCIUM 09/16/2020 1 2:00:00 AM EDT tablet 30 TAKE ONE TABLET BY MOUTH EVERY D AY TAKE ONE TABLET BY MOUTH EVERY DAY SOLD: 12/27/2020 [facility] atorvastatin 10 MG Oral Tablet ATORVASTATIN CALCIUM 09/16/2020 1 2:00:00 AM EDT tablet 30 TAKE ONE TABLET BY MOUTH EVERY D AY TAKE ONE TABLET BY MOUTH EVERY DAY SOLD: 11/25/2020 [facility] atorvastatin 10 MG Oral Tablet ATORVASTATIN CALCIUM 09/16/2020 1 2:00:00 AM EDT tablet 30 TAKE ONE TABLET BY MOUTH EVERY D AY TAKE ONE TABLET BY MOUTH EVERY DAY SOLD: 09/26/2020 [facility] atorvastatin 10 MG Oral Tablet ATORVASTATIN CALCIUM 09/16/2020 1 2:00:00 AM EDT tablet 30 TAKE ONE TABLET BY MOUTH EVERY D AY TAKE ONE TABLET BY MOUTH EVERY DAY SOLD: 10/27/2020 [facility] 100 mg 08/21/2020 12:00:00 AM EDT tablet 30 TAKE ONE TABLET BY MOUTH EVERY DAY TAKE ONE TABLET BY MOUTH EVERY DAY SOLD: 12/27/2020 [facility] 100 mg 08/21/2020 12:00:00 AM EDT tablet 30 TAKE ONE TABLET BY MOUTH EVERY DAY TAKE ONE TABLET BY MOUTH EVERY DAY SOLD: 10/27/2020 [facility] 100 mg 08/21/2020 12:00:00 AM EDT tablet 30 TAKE ONE TABLET BY MOUTH EVERY DAY TAKE ONE TABLET BY MOUTH EVERY DAY SOLD: 08/21/2020 [facility] 100 mg 08/21/2020 12:00:00 AM EDT tablet 30 TAKE ONE TABLET BY MOUTH EVERY DAY TAKE ONE TABLET BY MOUTH EVERY DAY SOLD: 11/25/2020 [facility] 100 mg 08/21/2020 12:00:00 AM EDT tablet 30 TAKE ONE TABLET BY MOUTH EVERY DAY TAKE ONE TABLET BY MOUTH EVERY DAY SOLD: 09/26/2020 [facility] 1 ML denosumab 60 MG/ML Prefilled Syringe [Prolia] Prolia 07/28/2020 12:00:00 AM EDT active [facility] ([facility]) Ondansetron 4 MG Disintegrating Oral Tablet ONDANSETRON 06/09/2020 12:00:00 AM EDT tablet,disintegrating [address] ONE TABLET BY MOUTH EVERY 6 TO 8 HOURS NEEDED FOR NAUSEA AND VOMITING PLACE ONE TABLET BY MOUTH EVERY 6 TO 8 H OURS NEEDED FOR NAUSEA AND VOMITING SOLD: 06/09/2020 [facility] 1,250 mcg (50,000 unit) 05/11/2020 12:00:00 AM EDT capsule 4 TAKE 1 CAPSULE BY MOUTH ONCE EVERY 2 WEEKS TAKE 1 CAPSULE BY MOUTH ONCE EVERY 2 WEEKS SOLD: 08/21/2020 [facility] 1,250 mcg (50,000 unit) 05/11/2020 12:00:00 AM EDT capsule 4 TAKE 1 CAPSULE BY MOUTH ONCE EVERY 2 WEEKS TAKE 1 CAPSULE BY MOUTH ONCE EVERY 2 WEEKS SOLD: 05/26/2020 [facility] Citalopram 20 MG Oral Tablet CITALOPRAM HYDROBROMIDE 04/16/2020 12:00:00 AM EST tablet 30 TAKE ONE TABLET BY MOUTH EVERY D AY TAKE ONE TABLET BY MOUTH EVERY DAY SOLD: 05/26/2020 [facility] Citalopram 20 MG Oral Tablet CITALOPRAM HYDROBROMIDE 04/16/2020 12:00:00 AM EST tablet 30 TAKE ONE TABLET BY MOUTH EVERY D AY TAKE ONE TABLET BY MOUTH EVERY DAY SOLD: 06/21/2020 [facility] Citalopram 20 MG Oral Tablet CITALOPRAM HYDROBROMIDE 04/16/2020 12:00:00 AM EST tablet 30 TAKE ONE TABLET BY MOUTH EVERY D AY TAKE ONE TABLET BY MOUTH EVERY DAY SOLD: 08/21/2020 [facility] Citalopram 20 MG Oral Tablet CITALOPRAM HYDROBROMIDE 04/16/2020 12:00:00 AM EST tablet 30 TAKE ONE TABLET BY MOUTH EVERY D AY TAKE ONE TABLET BY MOUTH EVERY DAY SOLD: 04/16/2020 [facility] Citalopram 20 MG Oral Tablet CITALOPRAM HYDROBROMIDE 04/16/2020 12:00:00 AM EST tablet 30 TAKE ONE TABLET BY MOUTH EVERY D AY TAKE ONE TABLET BY MOUTH EVERY DAY SOLD: 09/26/2020 [facility] Citalopram 20 MG Oral Tablet CITALOPRAM HYDROBROMIDE 04/16/2020 12:00:00 AM EST tablet 30 TAKE ONE TABLET BY MOUTH EVERY D AY TAKE ONE TABLET BY MOUTH EVERY DAY SOLD: 07/24/2020 [facility] atorvastatin 10 MG Oral Tablet ATORVASTATIN CALCIUM 03/21/2020 1 2:00:00 AM EST tablet 30 TAKE ONE TABLET BY MOUTH EVERY D AY TAKE ONE TABLET BY MOUTH EVERY DAY SOLD: 04/16/2020 [facility] atorvastatin 10 MG Oral Tablet ATORVASTATIN CALCIUM 03/21/2020 1 2:00:00 AM EST tablet 30 TAKE ONE TABLET BY MOUTH EVERY D AY TAKE ONE TABLET BY MOUTH EVERY DAY SOLD: 07/24/2020 [facility] atorvastatin 10 MG Oral Tablet ATORVASTATIN CALCIUM 03/21/2020 1 2:00:00 AM EST tablet 30 TAKE ONE TABLET BY MOUTH EVERY D AY TAKE ONE TABLET BY MOUTH EVERY DAY SOLD: 03/21/2020 [facility] atorvastatin 10 MG Oral Tablet ATORVASTATIN CALCIUM 03/21/2020 1 2:00:00 AM EST tablet 30 TAKE ONE TABLET BY MOUTH EVERY D AY TAKE ONE TABLET BY MOUTH EVERY DAY SOLD: 05/26/2020 [facility] atorvastatin 10 MG Oral Tablet ATORVASTATIN CALCIUM 03/21/2020 1 2:00:00 AM EST tablet 30 TAKE ONE TABLET BY MOUTH EVERY D AY TAKE ONE TABLET BY MOUTH EVERY DAY SOLD: 08/21/2020 [facility] atorvastatin 10 MG Oral Tablet ATORVASTATIN CALCIUM 03/21/2020 1 2:00:00 AM EST tablet 30 TAKE ONE TABLET BY MOUTH EVERY D AY TAKE ONE TABLET BY MOUTH EVERY DAY SOLD: 06/21/2020 [facility] 100 mg 02/22/2020 12:00:00 AM EST tablet 30 TAKE ONE TABLET BY MOUTH EVERY DAY TAKE ONE TABLET BY MOUTH EVERY DAY SOLD: 02/22/2020 [facility] 2.5 mg 02/22/2020 12:00:00 AM EST tablet 25 TAKE 5 TABLETS BY MOUTH ONCE EVERY WEEK TAKE 5 TABLETS BY MOUTH ONCE EVERY WEEK SOLD: 05/26/2020 [facility] 100 mg 02/22/2020 12:00:00 AM EST tablet 30 TAKE ONE TABLET BY MOUTH EVERY DAY TAKE ONE TABLET BY MOUTH EVERY DAY SOLD: 07/24/2020 [facility] 100 mg 02/22/2020 12:00:00 AM EST tablet 30 TAKE ONE TABLET BY MOUTH EVERY DAY TAKE ONE TABLET BY MOUTH EVERY DAY SOLD: 03/21/2020 [facility] 2.5 mg 02/22/2020 12:00:00 AM EST tablet 25 TAKE 5 TABLETS BY MOUTH ONCE EVERY WEEK TAKE 5 TABLETS BY MOUTH ONCE EVERY WEEK SOLD: 08/27/2020 [facility] 2.5 mg 02/22/2020 12:00:00 AM EST tablet 25 TAKE 5 TABLETS BY MOUTH ONCE EVERY WEEK TAKE 5 TABLETS BY MOUTH ONCE EVERY WEEK SOLD: 06/21/2020 [facility] 100 mg 02/22/2020 12:00:00 AM EST tablet 30 TAKE ONE TABLET BY MOUTH EVERY DAY TAKE ONE TABLET BY MOUTH EVERY DAY SOLD: 05/26/2020 [facility] 2.5 mg 02/22/2020 12:00:00 AM EST tablet 25 TAKE 5 TABLETS BY MOUTH ONCE EVERY WEEK TAKE 5 TABLETS BY MOUTH ONCE EVERY WEEK SOLD: 02/22/2020 [facility] 2.5 mg 02/22/2020 12:00:00 AM EST tablet 25 TAKE 5 TABLETS BY MOUTH ONCE EVERY WEEK TAKE 5 TABLETS BY MOUTH ONCE EVERY WEEK SOLD: 09/26/2020 [facility] 100 mg 02/22/2020 12:00:00 AM EST tablet 30 TAKE ONE TABLET BY MOUTH EVERY DAY TAKE ONE TABLET BY MOUTH EVERY DAY SOLD: 06/21/2020 [facility] 100 mg 02/22/2020 12:00:00 AM EST tablet 30 TAKE ONE TABLET BY MOUTH EVERY DAY TAKE ONE TABLET BY MOUTH EVERY DAY SOLD: 04/16/2020 [facility] 2.5 mg 02/22/2020 12:00:00 AM EST tablet 25 TAKE 5 TABLETS BY MOUTH ONCE EVERY WEEK TAKE 5 TABLETS BY MOUTH ONCE EVERY WEEK SOLD: 07/30/2020 [facility] 2.5 mg 02/22/2020 12:00:00 AM EST tablet 25 TAKE 5 TABLETS BY MOUTH ONCE EVERY WEEK TAKE 5 TABLETS BY MOUTH ONCE EVERY WEEK SOLD: 03/21/2020 [facility] 100 mg 02/21/2020 12:00:00 AM EST capsule 60 TAKE ONE CAPSULE BY MOUTH TWICE A DAY TAKE ONE CAPSULE BY MOUTH TWICE A DAY SOLD: 10/27/2020 [facility] Atenolol 25 MG Oral Tablet ATENOLOL 02/21/2020 12:00:00 AM EST tablet 60 TAKE ONE TABLET BY MOUTH TWICE A DAY TAKE ONE TABLET BY MOUTH TWICE A DAY SOLD: 03/21/2020 [facility] Atenolol 25 MG Oral Tablet ATENOLOL 02/21/2020 12:00:00 AM EST tablet 60 TAKE ONE TABLET BY MOUTH TWICE A DAY TAKE ONE TABLET BY MOUTH TWICE A DAY SOLD: 05/26/2020 [facility] 100 mg 02/21/2020 12:00:00 AM EST capsule 60 TAKE ONE CAPSULE BY MOUTH TWICE A DAY TAKE ONE CAPSULE BY MOUTH TWICE A DAY SOLD: 05/26/2020 [facility] 25 mg 02/21/2020 12:00:00 AM EST tablet 60 TAKE ONE TABLET BY MOUTH TWICE A DAY TAKE ONE TABLET BY MOUTH TWICE A DAY SOLD: 06/21/2020 [facility] 100 mg 02/21/2020 12:00:00 AM EST capsule 60 TAKE ONE CAPSULE BY MOUTH TWICE A DAY TAKE ONE CAPSULE BY MOUTH TWICE A DAY SOLD: 03/21/2020 [facility] Atenolol 25 MG Oral Tablet ATENOLOL 02/21/2020 12:00:00 AM EST tablet 60 TAKE ONE TABLET BY MOUTH TWICE A DAY TAKE ONE TABLET BY MOUTH TWICE A DAY SOLD: 02/22/2020 [facility] Atenolol 25 MG Oral Tablet ATENOLOL 02/21/2020 12:00:00 AM EST tablet 60 TAKE ONE TABLET BY MOUTH TWICE A DAY TAKE ONE TABLET BY MOUTH TWICE A DAY SOLD: 04/16/2020 [facility] 100 mg 02/21/2020 12:00:00 AM EST capsule 60 TAKE ONE CAPSULE BY MOUTH TWICE A DAY TAKE ONE CAPSULE BY MOUTH TWICE A DAY SOLD: 02/22/2020 [facility] 100 mg 02/21/2020 12:00:00 AM EST capsule 60 TAKE ONE CAPSULE BY MOUTH TWICE A DAY TAKE ONE CAPSULE BY MOUTH TWICE A DAY SOLD: 07/24/2020 [facility] 100 mg 02/21/2020 12:00:00 AM EST capsule 60 TAKE ONE CAPSULE BY MOUTH TWICE A DAY TAKE ONE CAPSULE BY MOUTH TWICE A DAY SOLD: 09/26/2020 [facility] 100 mg 02/21/2020 12:00:00 AM EST capsule 60 TAKE ONE CAPSULE BY MOUTH TWICE A DAY TAKE ONE CAPSULE BY MOUTH TWICE A DAY SOLD: 08/21/2020 [facility] 100 mg 02/21/2020 12:00:00 AM EST capsule 60 TAKE ONE CAPSULE BY MOUTH TWICE A DAY TAKE ONE CAPSULE BY MOUTH TWICE A DAY SOLD: 04/16/2020 [facility] 100 mg 02/21/2020 12:00:00 AM EST capsule 60 TAKE ONE CAPSULE BY MOUTH TWICE A DAY TAKE ONE CAPSULE BY MOUTH TWICE A DAY SOLD: 06/21/2020 [facility] 25 mg 02/21/2020 12:00:00 AM EST tablet 60 TAKE ONE TABLET BY MOUTH TWICE A DAY TAKE ONE TABLET BY MOUTH TWICE A DAY SOLD: 07/24/2020 [facility] 1,250 mcg (50,000 unit) 12/26/2019 12:00:00 AM EDT capsule 4 TAKE 1 CAPSULE BY MOUTH ONCE EVERY 2 WEEKS TAKE 1 CAPSULE BY MOUTH ONCE EVERY 2 WEEKS SOLD: 02/22/2020 [facility] 1,250 mcg (50,000 unit) 12/26/2019 12:00:00 AM EDT capsule 4 TAKE 1 CAPSULE BY MOUTH ONCE EVERY 2 WEEKS TAKE 1 CAPSULE BY MOUTH ONCE EVERY 2 WEEKS SOLD: 03/21/2020 [facility] 1,250 mcg (50,000 unit) 12/26/2019 12:00:00 AM EDT capsule 4 TAKE 1 CAPSULE BY MOUTH ONCE EVERY 2 WEEKS TAKE 1 CAPSULE BY MOUTH ONCE EVERY 2 WEEKS SOLD: 12/26/2019 [facility] 70 mg 11/24/2019 12:00:00 AM EDT tablet 12 TAKE 1 TABLET BY MOUTH EVERY WEEK TAKE 1 TABLET BY MOUTH EVERY WEEK SOLD: 05/26/2020 [facility] 70 mg 11/24/2019 12:00:00 AM EDT tablet 12 TAKE 1 TABLET BY MOUTH EVERY WEEK TAKE 1 TABLET BY MOUTH EVERY WEEK SOLD: 11/25/2019 [facility] 70 mg 11/24/2019 12:00:00 AM EDT tablet 12 TAKE 1 TABLET BY MOUTH EVERY WEEK TAKE 1 TABLET BY MOUTH EVERY WEEK SOLD: 02/22/2020 [facility] Meclizine Hydrochloride 25 MG Oral Tablet MECLIZINE HCL 11/08/2019 12:00:00 AM EDT tablet 60 TAKE ONE TABLET BY MOUTH THREE TIMES A DAY NEEDED FOR DIZZINESS TAKE ONE TABLET BY MOUTH THREE TIMES A DAY NEEDED F OR DIZZINESS SOLD: 12/24/2019 [facility] Meclizine Hydrochloride 25 MG Oral Tablet Meclizine HCL 11/08/2019 12:00:00 AM EDT active [facility] ([facility]) Meclizine Hydrochloride 25 MG Oral Tablet MECLIZINE HCL 11/08/2019 12:00:00 AM EDT tablet 60 TAKE ONE TABLET BY MOUTH THREE TIMES A DAY NEEDED FOR DIZZINESS TAKE ONE TABLET BY MOUTH THREE TIMES A DAY NEEDED F OR DIZZINESS SOLD: 11/09/2019 [facility] Citalopram 20 MG Oral Tablet CITALOPRAM HYDROBROMIDE 09/18/2019 12:00:00 AM EDT tablet 30 TAKE ONE TABLET BY MOUTH EVERY D AY TAKE ONE TABLET BY MOUTH EVERY DAY SOLD: 12/24/2019 [facility] 20 mg 09/18/2019 12:00:00 AM EDT tablet 30 TAKE ONE TABLET BY MOUTH EVERY DAY TAKE ONE TABLET BY MOUTH EVERY DAY SOLD: 11/25/2019 [facility] Citalopram 20 MG Oral Tablet CITALOPRAM HYDROBROMIDE 09/18/2019 12:00:00 AM EDT tablet 30 TAKE ONE TABLET BY MOUTH EVERY D AY TAKE ONE TABLET BY MOUTH EVERY DAY SOLD: 02/22/2020 [facility] Citalopram 20 MG Oral Tablet CITALOPRAM HYDROBROMIDE 09/18/2019 12:00:00 AM EDT tablet 30 TAKE ONE TABLET BY MOUTH EVERY D AY TAKE ONE TABLET BY MOUTH EVERY DAY SOLD: 01/24/2020 [facility] Citalopram 20 MG Oral Tablet CITALOPRAM HYDROBROMIDE 09/18/2019 12:00:00 AM EDT tablet 30 TAKE ONE TABLET BY MOUTH EVERY D AY TAKE ONE TABLET BY MOUTH EVERY DAY SOLD: 03/21/2020 [facility] 25 mg 08/25/2019 12:00:00 AM EDT tablet 60 TAKE ONE TABLET BY MOUTH TWICE A DAY TAKE ONE TABLET BY MOUTH TWICE A DAY SOLD: 12/24/2019 [facility] Atenolol 25 MG Oral Tablet ATENOLOL 08/25/2019 12:00:00 AM EDT tablet 60 TAKE ONE TABLET BY MOUTH TWICE A DAY TAKE ONE TABLET BY MOUTH TWICE A DAY SOLD: 01/24/2020 [facility] 25 mg 08/25/2019 12:00:00 AM EDT tablet 60 TAKE ONE TABLET BY MOUTH TWICE A DAY TAKE ONE TABLET BY MOUTH TWICE A DAY SOLD: 11/25/2019 [facility] atorvastatin 10 MG Oral Tablet ATORVASTATIN CALCIUM 07/24/2019 1 2:00:00 AM EDT tablet 30 TAKE ONE TABLET BY MOUTH EVERY D AY TAKE ONE TABLET BY MOUTH EVERY DAY SOLD: 01/24/2020 [facility] 100 mg 07/24/2019 12:00:00 AM EDT tablet 30 TAKE ONE TABLET BY MOUTH EVERY DAY TAKE ONE TABLET BY MOUTH EVERY DAY SOLD: 12/24/2019 [facility] atorvastatin 10 MG Oral Tablet ATORVASTATIN CALCIUM 07/24/2019 1 2:00:00 AM EDT tablet 30 TAKE ONE TABLET BY MOUTH EVERY D AY TAKE ONE TABLET BY MOUTH EVERY DAY SOLD: 02/22/2020 [facility] atorvastatin 10 MG Oral Tablet ATORVASTATIN CALCIUM 07/24/2019 1 2:00:00 AM EDT tablet 30 TAKE ONE TABLET BY MOUTH EVERY D AY TAKE ONE TABLET BY MOUTH EVERY DAY SOLD: 12/22/2019 [facility] atorvastatin 10 MG Oral Tablet ATORVASTATIN CALCIUM 07/24/2019 1 2:00:00 AM EDT tablet 30 TAKE ONE TABLET BY MOUTH EVERY D AY TAKE ONE TABLET BY MOUTH EVERY DAY SOLD: 11/25/2019 [facility] 100 mg 07/24/2019 12:00:00 AM EDT tablet 30 TAKE ONE TABLET BY MOUTH EVERY DAY TAKE ONE TABLET BY MOUTH EVERY DAY SOLD: 11/25/2019 [facility] 2.5 mg 04/26/2019 12:00:00 AM EST tablet 25 TAKE 5 TABLETS BY MOUTH ONCE EVERY WEEK TAKE 5 TABLETS BY MOUTH ONCE EVERY WEEK SOLD: 12/26/2019 [facility] 2.5 mg 04/26/2019 12:00:00 AM EST tablet 25 TAKE 5 TABLETS BY MOUTH ONCE EVERY WEEK TAKE 5 TABLETS BY MOUTH ONCE EVERY WEEK SOLD: 01/24/2020 [facility] 100 mg 03/06/2019 12:00:00 AM EST capsule 60 TAKE ONE CAPSULE BY MOUTH TWICE A DAY TAKE ONE CAPSULE BY MOUTH TWICE A DAY SOLD: 12/24/2019 [facility] 100 mg 03/06/2019 12:00:00 AM EST capsule 60 TAKE ONE CAPSULE BY MOUTH TWICE A DAY TAKE ONE CAPSULE BY MOUTH TWICE A DAY SOLD: 11/25/2019 [facility] 100 mg 03/06/2019 12:00:00 AM EST capsule 60 TAKE ONE CAPSULE BY MOUTH TWICE A DAY TAKE ONE CAPSULE BY MOUTH TWICE A DAY SOLD: 01/24/2020 [facility] 100 mg 03/06/2019 12:00:00 AM EST tablet 30 TAKE ONE TABLET BY MOUTH EVERY DAY TAKE ONE TABLET BY MOUTH EVERY DAY SOLD: 01/24/2020 [facility] Insurance Providers Payer name Policy type / Coverage type Policy ID Covered democrat ID Covered democrat's relationship to thomas Policy Thomas Plan Information BS [employer] Trad/[place] Commercial [id number] Family Dependent 802 [employer]ad/[place] Medigap Part B [id number] Family Dependent [id number] [facility] Trad/MX Medigap Part B [id number] Family Dependent [id number] [facility] Trad/MX Commercial [id number] Family Dependent 802 Medicare Natl Govt Servic Medicare Primary [id number] Self [id number] MEDICARE [id number] Tamika [id number] Medicare Natl Govt Servic Medicare Primary [id number] Self [id number] Medicare Natl Govt Servic Medicare Primary [id number] Self [id number] Medicare Natl Govt Servic Medicare Primary [id number] Self [id number] Medicare Natl Govt Servic Medicare Primary [id number] [id number] Self [id number] Medicare Natl Govt Servic Medicare Primary [id number] Self [id number] Medicare Natl Govt Servic Medicare Primary [id number] Self [id number] [facility] [id number] Self [facility] Medigap Part B [id number] Self [id number] 12 [facility] Opt Medigap Part B [id number] Self [id number] 12 [facility] Medigap Part B [id number] 12 [id number] Self [id number] 12 [facility] Medigap Part B [id number] Self [id number] 12 [facility] Opt Medigap Part B Plan [id number] Self Plan F [facility] Opt Medigap Part B [id number] 12 [id number] Self [id number] 12 [facility] Medigap Part B [id number] Self [id number] 12 [facility] Opt Medigap Part B [id number] 12 [id number] Self [id number] 12 [facility] [id number] Tamika [id number] MEDICARE [id number] SP [id number] B AARP O [id number] S [id number] MEDICARE C [id number] S [id number] B BS [employer]rick Trad/MX Commercial [id number] AARP S [id number] S [id number] BS Angela Trad/MX Commercial [id number] MEDICARE [id number] SP [id number] [id number] Aar Medigap Part B [id number] 0232.0 Self [id number] Medicare Part B Medicare Primary [id number] Self [id number] MEDICARE C [id number] S [id number] [facility] OPTIONS [id number] SP [id number] BS [employer]rick Trad/MX Commercial [id number] BS [employer]rick Trad/[place] Medigap Part B [id number] AARP O [id number] S [id number] [facility] Medigap Part B [id number] 0232.0 Self [id number] BS Angela Trad/MX Medigap Part B [id number] Medicare Part B Medicare Primary [id number] Self [id number] BS [employer]rick Trad/MX Medigap Part B [id number] Medicare Part B Medicare Primary [id number] Self BS Angela Trad/MX Medigap Part B [id number] [employer] [id number] Self BS Orrick Trad/MX Medigap Part B [id number] Medicare Medicare Primary [id number] Self Problems, Conditions, and Diagnoses No Information Surgeries/Procedures Procedure Description Date Indications Data Source(s) Magnetic Resonance Angiogtaphy Head W/O Contrast Material(S) 11/08/2020 12:00:00 AM EDT [facility] ([facility], ) Magnetic Resonance Angiogtaphy Head W/O Contrast Material(S) 11/08/2020 12:00:00 AM EDT [facility] ([facility], ) MRI BRAIN BRAIN STEM W/O CONTRAST MATERIAL 11/08/2020 12:00:00 AM EDT [facility] ([facility], ) MRI BRAIN BRAIN STEM W/O CONTRAST MATERIAL 11/08/2020 12:00:00 AM EDT [facility] ([facility], ) OFFICE OUTPATIENT VISIT 25 MINUTES 11/07/2020 12:00:00 AM EDT [facility] ([facility], ) Bone Mineral Density Test 2020 12:00:00 AM EDT [facility] FALLS RISK ASSESSMENT DOCUMENTED 11/08/2019 12:00:00 A M EDT [facility] ([facility], ) Results ID Date Data Source [id number] 07/28/2020 08:58:00 AM EDT [facility]) Name Value Range Interpretation Code Description Data No rce(s) Supporting Document(s) Phosphate [Moles/volume] in Serum or Plasma 2.9 mg/dL 2.5-4.9 [facility] ID Date Data Source [id number] 07/28/2020 08:57:00 AM EDT [facility] [facility]) Name Value Range Interpretation Code Description Data No rce(s) Supporting Document(s) Calcidiol [Mass/volume] in Serum or Plasma Laboratory test result [facility] This test was performed using FastPack I P Vitamin D immunoassay kit. Values obtained with different assay methods should not be used interchangeably. ID Date Data Source [id number] 07/28/2020 08:57:00 AM EDT [facility] ([facility]) Name Value Range Interpretation Code Description Data No rce(s) Supporting Document(s) Magnesium 2.0 mg/dL 1.8-2.4 [facility] [facility]) ID Date Data Source [id number] 07/28/2020 08:57:00 AM EDT [facility] ([facility]) Name Value Range Interpretation Code Description Data No rce(s) Supporting Document(s) Glucose [Mass/volume] in Serum or Plasma 101 mg/dL 74-99 [facility] ([facility]) 100-125 mg/dL PRE-DIABETES/FASTING >126 mg/dL DIABETES/FASTING Creatinine 0.7 mg/dL 0.6-1.3 [facility] ([facility]) Urea nitrogen [Mass/volume] in Serum or Plasma 14 mg/dL 7-18 [facility] ([facility]) Sodium [Moles/volume] in Serum or Plasma 148 meq/L 136-145 [facility] ([facility]) NOTE: LYTES VERIFIED Chloride [Moles/volume] in Serum or Plasma 112 meq/L 98-107 [facility] ([facility]) Potassium [Moles/volume] in Serum or Plasma 3.6 meq/L 3.5-5.1 [facility] ([facility]) Calcium [Mass/volume] in Serum or Plasma 9.5 mg/dL 8.5-10.1 [facility] ([facility]) Glomerular filtration rate/1.73 sq M pre dicted among non-blacks [Volume Rate/Area] in Serum or Plasma by Creatinine-based formula (MDRD) Laboratory test result [facility] ([facility] ) Carbon dioxide, total [Moles/volume] in Serum or Plasma 28 meq/L 21 -32 [facility] ([facility]) Glomerular filtration rate/1.73 sq M pre dicted among blacks [Volume Rate/Area] in Serum or Plasma by Creatinine-based formula (MDRD) Laboratory test result [facility] <content>CHRONIC KIDNEY DISEASE STAGING PER NKF</content>
<content></content>
<content>STAGE I & II GFR >= 60 NORMAL TO MILDLY DECREASED</content>
<content>STAGE III GFR 30-59 MODERATELY DECREASED</content>
<content>STAGE IV GFR 15-29 SEVERELY DECREASED</content>
<content>STAGE V GFR <15 VERY LITTLE GFR LEFT</content>
<content>ESRD GFR <15 ON FISHERIES DIVER</content>
<content></content> ID Date Data Source [id number] 07/14/2020 07:27:00 AM EDT [facility] ([facility]) Name Value Range Interpretation Code Description Data No rce(s) Supporting Document(s) Erythrocyte sedimentation rate by Westergren method 5 mm/hr 0-15 [facility] ([facility]) ID Date Data Source [id number] 07/14/2020 07:27:00 AM EDT [facility] ([facility]) Name Value Range Interpretation Code Description Data No rce(s) Supporting Document(s) Glucose [Mass/volume] in Serum or Plasma 105 mg/dL 74-99 [facility] ([facility]) 100-125 mg/dL PRE-DIABETES/FASTING >126 mg/dL DIABETES/FASTING Urea nitrogen [Mass/volume] in Serum or Plasma 12 mg/dL 7-18 [facility] ([facility]) Creatinine 0.9 mg/dL 0.6-1.3 [facility] [facility] Sodium [Moles/volume] in Serum or Plasma 143 meq/L 136-145 [facility] ([facility]) Chloride [Moles/volume] in Serum or Plasma 109 meq/L 98-107 [facility] ([facility]) Potassium [Moles/volume] in Serum or Plasma 3.8 meq/L 3.5-5.1 [facility] ([facility]) Alkaline phosphatase isoenzyme [Units/volume] in Serum or Pl asma 95 mg/dL 46-116 [facility] ([facility]) Calcium [Mass/volume] in Serum or Plasma 8.9 mg/dL 8.5-10.1 [facility] ([facility]) Carbon dioxide, total [Moles/volume] in Serum or Plasma 31 meq/L 21 -32 [facility] [facility]) Total Bilirubin 0.6 mg/dL 0.2-1.0 [facility] [facility]) Aspartate aminotransferase [Enzymatic activity/volume] in Serum or Plasma 28 U/L 15-37 [facility] ([facility] ) Alanine aminotransferase [Enzymatic activity/volume] in Seru m or Plasma 32 U/L 12-78 [facility] ([facility]) Proteinase 3 Ab [Units/volume] in Serum 5.9 g/dL 6.4-8.2 [facility] ([facility]) Albumin [Mass/volume] in Serum or Plasma 3.2 g/dL 3.4-5.0 [facility] ([facility]) A/G Ratio 1.19 CALC 1.00-1.90 [facility] [facility]) Glomerular filtration rate/1.73 sq M pre dicted among non-blacks [Volume Rate/Area] in Serum or Plasma by Creatinine-based formula (MDRD) Laboratory test result [facility] ([facility] ) Glomerular filtration rate/1.73 sq M pre dicted among blacks [Volume Rate/Area] in Serum or Plasma by Creatinine-based formula (MDRD) Laboratory test result [facility] <content>CHRONIC KIDNEY DISEASE STAGING PER NKF</content>
<content></content>
<content>STAGE I & II GFR >= 60 NORMAL TO MILDLY DECREASED</content>
<content>STAGE III GFR 30-59 MODERATELY DECREASED</content>
<content>STAGE IV GFR 15-29 SEVERELY DECREASED</content>
<content>STAGE V GFR <15 VERY LITTLE GFR LEFT</content>
<content>ESRD GFR <15 ON FISHERIES DIVER</content>
<content></content> ID Date Data Source [id number] 07/14/2020 07:27:00 AM EDT [facility] ([facility]) Name Value Range Interpretation Code Description Data No rce(s) Supporting Document(s) Hemoglobin [Mass/volume] in Blood 12.5 g/dL 12.0-18.0 [facility] ([facility]) Leukocytes [#/volume] in Blood by Automated count 4.4 x10*3/UL 4.1-10 .9 [facility] ([facility]) Erythrocytes [#/volume] in Blood by Automated count 4.13 x10*6/UL 4.2 0-6.30 [facility] [facility] Hematocrit [Volume Fraction] of Blood by Automated count 37.8 % 3 7.0-51.0 [facility] ([facility]) MCV 91.6 fL 80.0-97.0 [facility] [facility] Erythrocyte distribution width [Ratio] by Automated count 14.6 % 11.6-13.7 [facility] ([facility]) MCHC 33.1 g/dL 31.0-38.0 [facility] [facility] MCH 30.3 pg 26.0-32.0 [facility] ([facility]) MPV 9.8 FL 7.8-11.0 [facility] ([facility]) Platelets [#/volume] in Blood by Automated count 113 x10*3/UL 140-440 [facility] ([facility]) Mid % 4.4 % 1.7-9.3 [facility] [facility] Lymph % 17.3 % 10.0-58.5 [facility] ([facility]) Neut % 78.3 % 37.0-92.0 [facility] ([facility]) Mid # 0.2 x10*3/UL 0.1-0.6 [facility] ([facility]) Lymph # 0.7 x10*3/UL 0.6-4.1 [facility] ([facility]) Neut # 3.5 x10*3/UL 2.0-7.8 [facility] ([facility]) ID Date Data Source [id number] 06/08/2020 07:52:00 PM EDT [facility] ([facility]) Name Value Range Interpretation Code Description Data No rce(s) Supporting Document(s) Laboratory test finding (navigational concept) 0.00 ng/mL 0.00-0.08 [facility] ([facility]) ID Date Data Source [id number] 06/08/2020 07:28:00 PM EDT [facility] ([facility]) Name Value Range Interpretation Code Description Data No rce(s) Supporting Document(s) Thyrotropin [Units/volume] in Serum or Plasma by Detec tion limit <= 0.05 mIU/L 1.540 uIU/ML 0.358-3.740 [facility] ([facility] ) Lipoprotein lipase [Enzymatic activity/volume] in Serum or P lasma 157 U/L 73-393 [facility] ([facility]) Thyroxine (T4) free [Mass/volume] in Serum or Plasma 1.11 ng/dL 0.76- 1.46 [facility] ([facility]) ID Date Data Source [id number] 06/08/2020 07:28:00 PM EDT [facility] ([facility]) Name Value Range Interpretation Code Description Data [facility] rce(s) Supporting Document(s) Glucose, Fasting 100 mg/dL 70-100 [facility] ([facility]) Creatinine For GFR 0.75 mg/dL 0.55-1.30 [facility] ([facility]) Blood Urea Nitrogen 17 mg/dL 7-18 [facility] ([facility]) Potassium Serum 4.5 meq/L 3.5-5.1 [facility] ([facility]) Testing was performed on a SLIGHTLY hemo lyzed specimen. Suggest recollection of specimen for more accurate test results. Glomerular Filtration Rate Laboratory test result [facility] [facility] <content>Units are mL/min/1.73 m2</content>
<content></content>
<content>Chronic Kidney Disease Staging per NKF:</content>
<content></content>
<content>Stage I & II GFR >=60 Normal to Mildly Decreased</content>
<content>Stage III GFR 30- 59 Moderately Decreased</content>
<content>Stage IV GFR 15-29 Severely Decreased</content>
<content>Stage V GFR <15 Very Little GFR Left</content>
<content>ESRD GFR <15 on FISHERIES DIVER</content>
<content></content> Sodium Level 144 meq/L 136-145 [facility] ([facility]) Carbon Dioxide Level 29 meq/L 21-32 [facility] Chloride Level 114 meq/L 98-107 [facility] Calcium Level 9.0 mg/dL 8.8-10.2 [facility] ([facility]) Anion Gap 1 meq/L 8-16 [facility] ([facility]) ID Date Data Source [id number] 06/08/2020 07:28:00 PM EDT [facility] Name Value Range Interpretation Code Description Data No rce(s) Supporting Document(s) Alkaline Phosphatase 92 U/L 45-117 [facility] Alt/SGPT 30 U/L 12-78 [facility] ([facility]) Ast/Sgot 35 U/L 7-37 [facility] ([facility]) Bilirubin,Direct Laboratory test result 0.0-0.2 [facility] [facility] Bilirubin,Total 0.5 mg/dL 0.2-1.0 [facility] ([facility]) Albumin 2.9 GM/DL 3.2-5.2 [facility] ([facility]) Total Protein 5.6 GM/DL 6.4-8.2 [facility] ([facility]) Albumin/Globulin Ratio 1.1 1.2-2.2 [facility] [facility] ID Date Data Source [id number] 06/08/2020 07:28:00 PM EDT [facility] ([facility] Name Value Range Interpretation Code Description Data No rce(s) Supporting Document(s) CK-MB Value Mass Laboratory test result [facility] ([facility]) CPK Creatine Phosphokinase 73 U/L 26-192 [facility] ([facility]) MB/CK Relative Index 1.37 [facility] <content>DIAGNOSIS CRITERIA</content>
<content>MMB ng/ml Relative Index (RI)</content>
<content>NON-AMI < or = 5 N/A</content>
<content>JAVIER ZONE > 5 < or = 4</content>
<content>AMI > 5 > 4</content>
<content></content> Troponin I 0.02 ng/mL [facility] [facility] <content>Troponin I Reference Interval f or Siemens [place] LOCI:</content>
<content></content>
<content>99th Percentile= 0.00-0.045 ng/ml</content>
<content></content>
<content>Risk Stratification:</content>
<content><= 0.10 ng/ml Decreased Risk for Adverse Clinical</content>
<content>Events.</content>
<content>0.10-1.50 ng/ml Increased Risk for Adverse Clinical</content>
<content>Events. Evaluation of additional</content>
<content>criterion and/or repeat testing in 2-6</content>
<content>hours is suggested to rule out myocardial</content>
<content>damage.</content>
<content>>= 1.50 ng/ml Indicative of Myocardial Injury.</content>
<content></content> ID Date Data Source [id number] 06/08/2020 07:28:00 PM EDT [facility] ([facility] Name Value Range Interpretation Code Description Data No rce(s) Supporting Document(s) Platelets reticulated/100 platelets in Blood by Automated count 7.8 % 0.0-9.59 [facility] [facility] [facility] ID Date Data Source [id number] 06/08/2020 07:28:00 PM EDT [facility] ([facility] Name Value Range Interpretation Code Description Data No rce(s) Supporting Document(s) White Blood Count 3.8 10 4.0-10.0 [facility] ([facility]) Hemoglobin 11.8 g/dL 12.0-15.5 [facility] [facility] Red Blood Count 3.93 10 4.00-5.40 [facility] ([facility]) Mean Corpuscular Volume 96.7 fl 80.0-96.0 [facility] ([facility]) Mean Corpuscular Hemoglobin 30.0 pg 27.0-33.0 [facility] ([facility]) Hematocrit 38.0 % 36.0-47.0 [facility] [facility]) Mean Corpuscular HGB Conc 31.1 g/dL 32.0-36.5 [facility] ([facility]) Red Cell Distribution Width 14.2 % 11.5-14.5 [facility] ([facility]) Neutrophils % 64.3 % 36.0-66.0 [facility] ([facility]) Platelet Count, Automated 75 10 150-450 [facility] ([facility]) Eos % 5.0 % 0.0-3.0 [facility] [facility] Lymph % 19.2 % 24.0-44.0 [facility] [facility]) [place] % 10.2 % 2.0-8.0 [facility] [facility]) Baso % 1.3 % 0.0-1.0 [facility] [facility]) Immature Granulocyte % 0.0 % 0-3.0 [facility] ([facility]) Nucleated Red Blood Cell % 0.0 % 0-0 [facility] ([facility]) Neutrophils # 2.5 10 1.5-8.5 [facility] ([facility]) Lymph # 0.7 10 1.5-5.0 [facility] [facility]) Eos # 0.2 10 0.0-0.5 [facility] [facility]) [place] # 0.4 10 0.0-0.8 [facility] [facility]) Baso # 0.1 10 0.0-0.2 [facility] [facility]) ID Date Data Source [id number] 01/18/2020 08:43:00 AM EST [facility] ([facility]) Name Value Range Interpretation Code Description Data No rce(s) Supporting Document(s) Lipoprotein lipase [Enzymatic activity/volume] in Serum or P lasma 206 U/L 73-393 [facility] ([facility]) Amylase [Enzymatic activity/volume] in Serum or Plasma 97 U/L 25- 115 [facility] ([facility]) ID Date Data Source [id number] 01/18/2020 08:41:00 AM EST [facility] ([facility]) Name Value Range Interpretation Code Description Data No rce(s) Supporting Document(s) Calcidiol [Mass/volume] in Serum or Plasma 48.8 24.0-80.0 [facility] ([facility]) This test was performed using FastPack I P Vitamin D immunoassay kit. Values obtained with different assay methods should not be used interchangeably. ID Date Data Source [id number] 01/18/2020 08:40:00 AM EST [facility] ([facility]) Name Value Range Interpretation Code Description Data No rce(s) Supporting Document(s) Glucose [Mass/volume] in Serum or Plasma 124 mg/dL 74-99 [facility] ([facility]) 100-125 mg/dL PRE-DIABETES/FASTING >126 mg/dL DIABETES/FASTING Urea nitrogen [Mass/volume] in Serum or Plasma 17 mg/dL 7-18 [facility] ([facility]) Creatinine 1.0 mg/dL 0.6-1.3 [facility] ([facility]) Sodium [Moles/volume] in Serum or Plasma 143 meq/L 136-145 [facility] ([facility]) Potassium [Moles/volume] in Serum or Plasma 3.7 meq/L 3.5-5.1 [facility] ([facility]) Carbon dioxide, total [Moles/volume] in Serum or Plasma 28 meq/L 21 -32 [facility] ([facility]) Chloride [Moles/volume] in Serum or Plasma 109 meq/L 98-107 [facility] ([facility]) Alkaline phosphatase isoenzyme [Units/volume] in Serum or Pl asma 75 mg/dL 46-116 [facility] ([facility]) Calcium [Mass/volume] in Serum or Plasma 9.2 mg/dL 8.5-10.1 [facility] ([facility]) Aspartate aminotransferase [Enzymatic activity/volume] in Serum or Plasma 45 U/L 15-37 [facility] ([facility] ) Total Bilirubin 0.9 mg/dL 0.2-1.0 [facility] ([facility]) Alanine aminotransferase [Enzymatic activity/volume] in Seru m or Plasma 45 U/L 12-78 [facility] ([facility]) Albumin [Mass/volume] in Serum or Plasma 3.0 g/dL 3.4-5.0 [facility] [facility]) A/G Ratio 1.00 CALC 1.00-1.90 [facility] [facility] [facility] Proteinase 3 Ab [Units/volume] in Serum 6.0 g/dL 6.4-8.2 [facility] [facility] [facility] Glomerular filtration rate/1.73 sq M pre dicted among non-blacks [Volume Rate/Area] in Serum or Plasma by Creatinine-based formula (MDRD) 54 mL/min [facility] Glomerular filtration rate/1.73 sq M pre dicted among blacks [Volume Rate/Area] in Serum or Plasma by Creatinine-based formula (MDRD) Laboratory test result [facility] <content>CHRONIC KIDNEY DISEASE STAGING PER NKF</content>
<content></content>
<content>STAGE I & II GFR >= 60 NORMAL TO MILDLY DECREASED</content>
<content>STAGE III GFR 30-59 MODERATELY DECREASED</content>
<content>STAGE IV GFR 15-29 SEVERELY DECREASED</content>
<content>STAGE V GFR <15 VERY LITTLE GFR LEFT</content>
<content>ESRD GFR <15 ON FISHERIES DIVER</content>
<content></content> ID Date Data Source [id number] 01/18/2020 08:40:00 AM EST [facility] ([facility]) Name Value Range Interpretation Code Description Data No rce(s) Supporting Document(s) Erythrocytes [#/volume] in Blood by Automated count 3.98 x10*6/UL 4.2 0-6.30 [facility] ([facility]) Leukocytes [#/volume] in Blood by Automated count 5.7 x10*3/UL 4.1-10 .9 [facility] ([facility] Hematocrit [Volume Fraction] of Blood by Automated count 36.8 % 3 7.0-51.0 [facility] ([facility] Hemoglobin [Mass/volume] in Blood 12.4 g/dL 12.0-18.0 [facility] ([facility]) MCV 92.3 fL 80.0-97.0 [facility] ([place] [facility]) MCH 31.2 pg 26.0-32.0 [facility] ([facility]) MCHC 33.8 g/dL 31.0-38.0 [facility] ([facility]) Erythrocyte distribution width [Ratio] by Automated count 14.5 % 11.6-13.7 [facility] ([facility] MPV 10.3 FL 7.8-11.0 [facility] ([place] [facility]) Platelets [#/volume] in Blood by Automated count 141 x10*3/UL 140-440 [facility] ([facility]) Mid % 3.7 % 1.7-9.3 [facility] ([place] [facility]) Lymph % 16.8 % 10.0-58.5 [facility] ([facility]) Neut % 79.5 % 37.0-92.0 [facility] ([place] [facility]) Lymph # 0.9 x10*3/UL 0.6-4.1 [facility] ([facility]) Neut # 4.6 x10*3/UL 2.0-7.8 [facility] ([facility]) Mid # 0.2 x10*3/UL 0.1-0.6 [facility] ([facility]) ID Date Data Source [id number] 11/15/2019 08:13:00 AM EDT [facility] ([facility] Name Value Range Interpretation Code Description Data No rce(s) Supporting Document(s) Lipoprotein lipase [Enzymatic activity/volume] in Serum or P lasma 1781 U/L 73-393 [facility] ([facility]) ID Date Data Source [id number] 11/15/2019 08:13:00 AM EDT [facility] ([facility]) Name Value Range Interpretation Code Description Data No rce(s) Supporting Document(s) Glucose, Fasting 105 mg/dL 70-100 [facility] ([facility]) Blood Urea Nitrogen 20 mg/dL 7-18 [facility] ([facility]) Creatinine For GFR 0.86 mg/dL 0.55-1.30 [facility] ([facility]) Glomerular Filtration Rate Laboratory test result [place] ([facility]) <content>Units are mL/min/1.73 m2</content>
<content></content>
<content>Chronic Kidney Disease Staging per NKF:</content>
<content></content>
<content>Stage I & II GFR >=60 Normal to Mildly Decreased</content>
<content>Stage III GFR 30-59 Moderately Decreased</content>
<content>Stage IV GFR 15-29 Severely Decreased</content>
<content>Stage V GFR <15 Very Little GFR Left</content>
<content>ESRD GFR <15 on FISHERIES DIVER</content>
<content></content> Potassium Serum 4.2 meq/L 3.5-5.1 [facility] ([facility]) Sodium Level 143 meq/L 136-145 [facility] ([facility]) Carbon Dioxide Level 27 meq/L 21-32 [facility] ([facility]) Chloride Level 111 meq/L 98-107 [facility] ([facility]) Anion Gap 5 meq/L 8-16 [facility] ([place] [facility]) Calcium Level 8.9 mg/dL 8.8-10.2 [facility] ([facility]) ID Date Data Source [id number] 11/15/2019 08:13:00 AM EDT [facility] ([facility]) Name Value Range Interpretation Code Description Data No rce(s) Supporting Document(s) Ast/Sgot 54 U/L 7-37 [facility] ([place] [facility] Alkaline Phosphatase 103 U/L 45-117 [facility] Alt/SGPT 70 U/L 12-78 [facility] ([place] [facility] Total Protein 5.6 GM/DL 6.4-8.2 [facility] ([facility]) Bilirubin,Total 1.8 mg/dL 0.2-1.0 [facility] ([facility]) Bilirubin,Direct 0.7 mg/dL 0.0-0.2 [facility] ([facility]) Albumin/Globulin Ratio 0.9 1.2-2.2 [facility] ([facility]) Albumin 2.7 GM/DL 3.2-5.2 [facility] ([place] [facility] ID Date Data Source [id number] 11/15/2019 08:13:00 AM EDT [facility] ([facility]) Name Value Range Interpretation Code Description Data No rce(s) Supporting Document(s) White Blood Count 12.7 10 4.0-10.0 [facility] ([facility]) Red Blood Count 4.09 10 4.00-5.40 [facility] ([facility]) Hematocrit 39.4 % 36.0-47.0 [facility] ([facility]) Mean Corpuscular Volume 96.3 fl 80.0-96.0 [facility] ([facility]) Hemoglobin 12.7 g/dL 12.0-15.5 [facility] ([facility]) Mean Corpuscular Hemoglobin 31.1 pg 27.0-33.0 [facility] ([facility]) Mean Corpuscular HGB Conc 32.2 g/dL 32.0-36.5 [facility] ([facility]) Red Cell Distribution Width 14.4 % 11.5-14.5 [facility] ([facility]) Neutrophils % 88.2 % 36.0-66.0 [facility] ([facility]) Platelet Count, Automated 117 10 150-450 [facility] ([facility]) Lymph % 4.5 % 24.0-44.0 [facility] ([place] [facility]) Baso % 0.3 % 0.0-1.0 [facility] [facility] [place] % 5.8 % 0.0-5.0 [facility] ([facility] [facility] Eos % 0.4 % 0.0-3.0 [facility] ([place] [facility] Neutrophils # 11.2 10 1.5-8.5 [facility] ([facility]) Nucleated Red Blood Cell % 0.0 % 0-0 [facility] ([facility]) Immature Granulocyte % 0.8 % 0-3.0 [facility] ([facility]) Lymph # 0.6 10 1.5-5.0 [facility] [facility] [place] # 0.7 10 0.0-0.8 [facility] ([place] [facility]) Eos # 0.1 10 0.0-0.5 [facility] ([place] [facility]) Baso # 0.0 10 0.0-0.2 [facility] ([place] [facility] ID Date Data Source [id number] 11/14/2019 09:40:00 AM EDT [facility] ([facility]) Name Value Range Interpretation Code Description Data No rce(s) Supporting Document(s) Lipoprotein lipase [Enzymatic activity/volume] in Serum or P lasma 238492 U/L 73-393 [facility] ([facility]) tube:CHECK THE ACTUAL SPECIMEN DILUTION tube:CHECK THE ACTUAL SPECIMEN DILUTION ID Date Data Source [id number] 11/14/2019 09:40:00 AM EDT [facility] ([facility]) Name Value Range Interpretation Code Description Data No rce(s) Supporting Document(s) Ast/Sgot 67 U/L 7-37 [facility] ([place] [facility] Alkaline Phosphatase 116 U/L 45-117 [facility] ([facility]) Alt/SGPT 80 U/L 12-78 [facility] [facility] Total Protein 5.9 GM/DL 6.4-8.2 [facility] ([facility]) Bilirubin,Direct 0.9 mg/dL 0.0-0.2 [facility] ([facility]) Bilirubin,Total 1.9 mg/dL 0.2-1.0 [facility] ([facility]) Albumin 3.0 GM/DL 3.2-5.2 [facility] [facility] Albumin/Globulin Ratio 1.0 1.2-2.2 [facility] ([facility]) ID Date Data Source [id number] 11/14/2019 04:09:00 AM EDT [facility] ([facility]) Name Value Range Interpretation Code Description Data No rce(s) Supporting Document(s) Laboratory test finding (navigational concept) 42.0 % 38.0-51.0 [facility] ([facility]) Laboratory test finding (navigational concept) 143 meq/L 136-145 [facility] ([facility]) Laboratory test finding (navigational concept) 3.6 meq/L 3.5-5.1 [facility] ([facility]) Laboratory test finding (navigational concept) 123 mg/dL 70-105 [facility] ([facility]) Laboratory test finding (navigational concept) 5.4 mg/dL 4.5-5.3 [facility] ([facility]) Laboratory test finding (navigational concept) 106 meq/L 98-109 [facility] ([facility]) Laboratory test finding (navigational concept) 23.0 MM/L 23.0-27.0 [facility] ([facility]) Laboratory test finding (navigational concept) 0.9 mg/dL 0.6-1.3 [facility] ([facility]) Laboratory test finding (navigational concept) 14 mg/dL 8-26 [facility] ([facility]) ID Date Data Source [id number] 11/14/2019 03:57:00 AM EDT [facility] ([facility]) Name Value Range Interpretation Code Description Data No rce(s) Supporting Document(s) Lipoprotein lipase [Enzymatic activity/volume] in Serum or P lasma 29254 U/L 73-393 [facility] ([facility]) ID Date Data Source [id number] 11/14/2019 03:57:00 AM EDT [facility] ([facility]) Name Value Range Interpretation Code Description Data No rce(s) Supporting Document(s) Alt/SGPT 89 U/L 12-78 [facility] ([place] [facility] Ast/Sgot 79 U/L 7-37 [facility] ([place] [facility]) Alkaline Phosphatase 117 U/L 45-117 [facility] ([facility]) Bilirubin,Total 3.3 mg/dL 0.2-1.0 [facility] ([facility]) Bilirubin,Direct 1.4 mg/dL 0.0-0.2 [facility] ([facility]) Total Protein 6.3 GM/DL 6.4-8.2 [facility] ([facility]) Albumin 3.1 GM/DL 3.2-5.2 [facility] ([place] [facility] Albumin/Globulin Ratio 1.0 1.2-2.2 [facility] ([facility]) ID Date Data Source [id number] 11/14/2019 03:57:00 AM EDT [facility] ([facility]) Name Value Range Interpretation Code Description [facility] Supporting Document(s) White Blood Count 13.7 10 4.0-10.0 [facility] ([facility]) Red Blood Count 4.54 10 4.00-5.40 [facility] ([facility]) Hematocrit 44.2 % 36.0-47.0 [facility] ([place] [facility]) Hemoglobin 13.9 g/dL 12.0-15.5 [facility] ([facility]) Mean Corpuscular HGB Conc 31.4 g/dL 32.0-36.5 [facility] ([facility]) Mean Corpuscular Volume 97.4 fl 80.0-96.0 [facility] ([facility]) Mean Corpuscular Hemoglobin 30.6 pg 27.0-33.0 [facility] ([facility]) Platelet Count, Automated 145 10 150-450 [facility] ([facility]) Red Cell Distribution Width 14.2 % 11.5-14.5 [facility] ([facility]) Neutrophils % 80.8 % 36.0-66.0 [facility] [facility]) Lymph % 7.6 % 24.0-44.0 [facility] [facility]) Baso % 0.7 % 0.0-1.0 [facility]) Eos % 2.0 % 0.0-3.0 [facility]) [place] % 8.5 % 0.0-5.0 [facility]) Nucleated Red Blood Cell % 0.0 % 0-0 [facility] ([facility]) Immature Granulocyte % 0.4 % 0-3.0 [facility] ([facility]) Lymph # 1.1 10 1.5-5.0 [facility] [place] [facility]) [place] # 1.2 10 0.0-0.8 [facility] [facility]) Neutrophils # 11.1 10 1.5-8.5 [facility] ([facility]) Eos # 0.3 10 0.0-0.5 [facility] ([place] [facility]) Baso # 0.1 10 0.0-0.2 [facility] ([place] [facility]) Procedure Social History No Information Vital Signs ID Date Data Source UNK Name Value Range Interpretation Code Description Data Source(s) Systolic blood pressure 118 mm[Hg] 118 mm[Hg] [facility] [facility] ) Diastolic [facility] pressure 80 mm[facility]] [facility] Heart rate 64 /min 64 /min [facility] Respiratory rate 16 /min 16 /min [facility] Systolic blood pressure 124 mm[Hg] 124 mm[Hg] [facility] ([facility]) RT Arm Heart rate 64 /min 64 /min [facility] ([facility]) Diastolic blood pressure 72 mm[Hg] 72 mm[Hg] [facility] ([facility]) RT Arm Body height 62.25 [in_i] 62.25 [in_i] [facility] 5'2.25" Body weight 133.50 [lb_av] 133.50 [lb_av] [facility] ([facility]) Body mass index (BMI) [Ratio] 24.2 kg/m2 24.2 k g/m2 [facility] ([facility]) Systolic blood pressure 116 mm[Hg] 116 mm[Hg] [facility] ([facility]) RT Arm Diastolic blood pressure 70 mm[Hg] 70 mm[Hg] [facility] ([facility]) RT Arm Heart rate 64 /min 64 /min [facility] ([facility]) Body height 62.25 [in_i] 62.25 [in_i] [facility] ([facility]) 5'2.25" Body weight 132.50 [lb_av] 132.50 [lb_av] [facility] ([facility]) Body mass index (BMI) [Ratio] 24.0 kg/m2 24.0 k g/m2 [facility] ([facility]) Systolic blood pressure 124 mm[Hg] 124 mm[Hg] [facility] ([facility]) Diastolic blood pressure 68 mm[Hg] 68 mm[Hg] [facility] ([facility]) Heart rate 56 /min 56 /min [facility] ([facility]) Body height 62.25 [in_i] 62.25 [in_i] [facility] ([facility]) 5'2.25" Body weight 129.00 [lb_av] 129.00 [lb_av] [facility] ([facility]) Oxygen saturation in Arterial blood by Pulse oximetry 99 % 99 % [place] ([facility]) Air Body mass index (BMI) [Ratio] 23.4 kg/m2 23.4 k g/m2 [facility] ([facility]) Body weight 123.50 [lb_av] 123.50 [lb_av] [facility] ([facility], ) Systolic blood pressure 122 mm[Hg] 122 mm[Hg] [facility] ([facility], ) Heart rate 52 /min 52 /min [facility] ([facility], ) Respiratory rate 16 /min 16 /min [facility] ( [facility], ) Diastolic blood pressure 80 mm[Hg] 80 mm[Hg] [facility] ([facility], )
--- OUTSIDE RECORDS SUMMARY | 2021-01-06 04:58 | CCD | Continuity of Care Document ---
Author Author Екатерина PEACOCK Organization Unknown Address [address] [place] [address] Phone [phone] Care Team Providers Care Yard Operator Name Role Phone Svetlana Bynum D.O. AUTM [phone] Problems Active Problems Provider Date Ischemic stroke [...] Losartan Potassium 25mg Tablets 1 po qd Muarice Sawyer M.D. 05/19/2014 Aspirin Ec 81mg Tablets DR 1 by mouth qday. 100tabs Unknown Atorvastatin Calcium 10mg Tablets 1 by mouth every day 90tabs Unknown Immunizations Description No Information Available Vital Signs Date Vital Result Comment 11/08/2019 7:26am BP Systolic 122 mmHg BP Diastolic 80 mmHg Heart Rate 52 /min Respiratory Rate 16 /min Weight 123.50 lb 11/02/2018 7:14am BP Systolic 122 mmHg BP Diastolic 84 mmHg Heart Rate 60 /min Respiratory Rate 16 /min Results Description No Information Available Procedures Date Code Description Status 11/07/2020 68068 Office/Outpatient Established Mo d MDM 30-39 Min Completed Medical Devices Description No Information Available Encounters Type Date Location Provider Dx Diagnosis Office Visit 11/07/2020 9:00a [facility] office - [place] Melva jack P.A.-C. I63.531 Cereb infrc d/t unsp occls or stenos of right post cereb art H53.8 Other visual disturbances Assessments Date Code Description Provider 11/07/2020 I63.531 Cerebral infarction due to unspe cified occlusion or stenosis Melva Thompson P.A.-C. 11/07/2020 H53.8 Other visual disturbances Melva Thompson P.A.-C. Plan of Treatment Future Appointment(s):* 11/07/2021 8:00 am - Melva Thompson P.A.-C. at Main office - [place] 11/07/2020 - Melva Thompson P.A.-C.* I63.531 Cerebral infarction due to unspecified occlusion or stenosis * H53.8 Other visual disturbances Functional Status Description No Information Available Mental Status Description No Information Available Referrals Description No Information Available"
--- OUTSIDE RECORDS SUMMARY | 2021-01-06 04:58 | CCD | Continuity of Care Document ---
Author Author Екатерина PEACOCK Organization Unknown Address [address] [place] [address] Phone [phone] Care Team Providers Care Mortuary Operations Manager Name Role Phone Svetalna Bynum D.O. AUTM [phone] Problems Active Problems Provider Date Ischemic stroke [...] Information Available Procedures Date Code Description Status 11/08/2020 58495 MRI Brain W/O Contrast Completed 11/08/2020 53906 MRI Brain W/O Contrast Completed 11/08/2020 93558 Magnetic Resonance Angiogtaphy H ead W/O Contrast Material(S) Completed 11/08/2020 67564 Magnetic Resonance Angiogtaphy H ead W/O Contrast Material(S) Completed 11/07/2020 62053 Office/Outpatient Established Mo d MDM 30-39 Min Completed Medical Devices Description No Information Available Encounters Type Date Location Provider Dx Diagnosis Office Visit 11/07/2020 9:00a [facility] office - [place] Melva jack P.A.-C. I63.531 Cereb infrc d/t unsp occls or stenos of right post cereb art H53.8 Other visual disturbances R42 Dizziness and giddiness Assessments Date Code Description Provider 11/08/2020 I63.531 Cerebral infarction due to unspecified occlusion or stenosis of right posterior cerebral artery Lidya Judd M.D. 11/08/2020 I63.531 Cerebral infarction due to unspecified occlusion or stenosis of right posterior cerebral artery MRI 11/08/2020 R42 Dizziness and giddiness Lidya Zaragoza M.D. 11/08/2020 R42 Dizziness and giddiness MRI 11/07/2020 I63.531 Cerebral infarction due to unspe cified occlusion or stenosis Melva Thompson P.A.-C. 11/07/2020 H53.8 Other visual disturbances Melva Thompson P.A.-C. 11/07/2020 R42 Dizziness and giddiness Melva Thompson P.A.-C. Plan of Treatment Future Appointment(s):* 11/07/2021 8:00 am - Melva Thompson P.A.-C. at [facility] office - [place] 11/07/2020 - Melva Thompson P.A.-C.* I63.531 Cerebral [...]
--- NOTE | 2021-01-06 05:26 | REPVR ---
PROCEDURE INFORMATION: Exam: CT Head Without Contrast Exam date and time: 01/06/2021 4:55 AM Age: 75 years old Clinical indication: Injury or trauma; Fall; Concussion/head injury; Additional info: Fall hit head on plavix TECHNIQUE: Imaging protocol: Computed tomography of the head without contrast. Radiation optimization: All CT scans at this facility use at least one of these dose optimization techniques: automated exposure control; mA and/or kV adjustment per patient size (includes targeted exams where dose is matched to clinical indication); or iterative reconstruction. COMPARISON: MRI-Brain without Contrast 10/23/2018 6:56 PM FINDINGS: There are no intra-or extra-axial hemorrhages or fluid collections. There is no mass effect or midline shift. Ventricles are mildly dilated with associated cortical volume loss consistent with generalized atrophy. Chronic ischemic changes in the periventricular deep white matter. Cortical based areas of encephalomalacia in the occipital lobes bilaterally, right greater than left, consistent with areas of old infarction. Appearance is similar to previous examination. Atherosclerotic changes within intracranial arteries. There are no focal parenchymal abnormalities. No calvarial fractures. IMPRESSION: Generalized atrophy and chronic ischemic changes. Cortical based areas of old infarction in the occipital lobes bilaterally, right larger than left. No acute intracranial process. No intracranial hemorrhage. Electronically signed by: Tom Waller On 01/06/2021 05:25:38 AM
--- NOTE | 2021-01-06 05:34 | REPVR ---
PROCEDURE INFORMATION: Exam: CT Cervical Spine Without Contrast Exam date and time: 01/06/2021 4:55 AM Age: 75 years old Clinical indication: Neck pain; Additional info: Fall hit head on plavix TECHNIQUE: Imaging protocol: Computed tomography images of the cervical spine without contrast. Radiation optimization: All CT scans at this facility use at least one of these dose optimization techniques: automated exposure control; mA and/or kV adjustment per patient size (includes targeted exams where dose is matched to clinical indication); or iterative reconstruction. COMPARISON: MRI-Brain without Contrast 10/23/2018 6:56 PM FINDINGS: There is normal cervical lordosis. Mild degenerative flattening of the C6 vertebral body. Vertebral body heights are otherwise maintained. Disc spaces are maintained. Prominent degenerative anterior osteophyte formation at C5-C6. No AP malalignment. Posterior elements and facets appear intact. There is a large, well corticated ossific fragment in the left aspect of the central canal at the level of C6. This measures up to 9 by 8 x 6 mm and is likely degenerative or related to old trauma. This does not appear acute. This causes probable moderate central canal stenosis. Intact neural rings are identified from C1 through T1. Degenerative changes cause probable moderate central canal stenosis at C4-C5. No definite evidence of acute fracture. Mild subpleural consolidation in the lung apices. IMPRESSION: Relatively large, well corticated ossific fragment in the left aspect of the central canal at the level of C6. This may be degenerative or related to remote trauma. This does not appear acute but causes probable moderate central canal stenosis. No definite evidence of acute fracture or traumatic AP malalignment within the cervical spine. Electronically signed by: Tom Waller On 01/06/2021 05:33:56 AM
--- OUTSIDE RECORDS SUMMARY | 2021-01-06 05:58 | CCD ---
Author Author [facility] Organization [facility] Address Unknown Phone Unavailable Care Team Providers Care Outpatient Physical Therapist Name Role Phone Fletcher, Svetlana DO Unavailable [...] Unavailable Fletcher, Svetlana DO Unavailable Unavailable Fletcher, Svetalna DO Unavailable Unavailable Fletcher, Svetlana DO Unavailable [...] is protected by Article 27-F of the [facility] law. If you continue you may have access to information: Regarding HIV / AIDS; Provided by facilities licensed or operated by the [facility] Office of Mental Health; or Provided by the [facility] Office for People With Developmental Disabilities. If such information is present, then the following [place] State mandated warning applies: This information has [...] law may result in a fine or retirement sentence or both. A general authorization for the release of medical or other information is NOT sufficient authorization for further disc losure. Encounters Encounter Providers Location Date Indications Data Source(s ) Outpatient Attender: Melva THOMAS [facility] 11/07/2020 09:00:00 AM EDT [facility] ([facility]) Outpatient Attender: Svetlana Gaines 07/28 08:40:00 AM EDT [facility] ([facility] ) Outpatient Attender: Svetlana Gaines 07/14 08:00:00 AM EDT [facility] ([facility] ) Outpatient Attender: Svetlana Gaines 01/17 07:20:00 AM EST [facility] ([facility] ) Outpatient Attender: Melva THOMAS [facility] 11/08/2019 09:00:00 AM EDT [facility] ([facility]) Immunizations Vaccine Date Status Description Data Source(s) COVID-19 VACCINE Moderna 06/05/2020 12:00:00 AM EDT completed [facility] Vaccine Series Complete: YESThis Data wa s Submitted to [facility] Via [employer]. COVID-19 VACCINE, MRNA-1273, LNP-S (MODERNA)/PF 06/05/2020 1 2:00:00 AM EDT completed [facility] COVID-19 VACCINE Moderna 05/08/2020 12:00:00 AM EDT completed [facility] Vaccine Series Complete: NOThis Data was Submitted to [facility] Via [employer]. COVID-19 VACCINE, MRNA-1273, LNP-S (MODERNA)/PF 05/08/2020 1 [...] EVERY DAY SOLD: 10/27/2020 [facility] Citalopram 20 MG Oral [...] 07/28/2020 12:00:00 AM EDT active [facility] ([facility]) Ondansetron 4 MG Disintegrating Oral Tablet [...] BY MOUTH ONCE EVERY WEEK SOLD: 02/22/2020 [facility] 2.5 mg 02/22/2020 [...] 11/08/2019 12:00:00 AM EDT active [facility] ([facility]) Meclizine Hydrochloride 25 MG [...] type / Coverage type Policy ID Covered alliance party ID Covered alliance party's relationship to thomas Policy Thomas Plan Information [place] Trad/MX Commercial [id number] Family Dependent 802 [employer] [place] [employer] Medigap Part B [id number] Family Dependent [id number] [facility] Trad/MX Medigap Part B [id number] Family Dependent [id number] [facility] Trad/MX Commercial [id number] Family Dependent 802 Medicare Natl Govt Servic Medicare Primary [id number] Self [id number] MEDICARE [id number] Tamika [id number] Medicare Natl Govt Servic Medicare Primary [id number] Self [id number] Medicare Natl Govt Servic Medicare Primary [id number] Self [id number] Medicare Natl Govt Servic Medicare Primary [id number] Self [id number] Medicare Natl Govt Servic Medicare Primary [id number] Self [id number] Medicare Natl Govt Servic Medicare Primary [id number] Self [id number] Medicare Natl Govt Servic Medicare Primary [id number] Self [id number] [facility] Primary [id number] Self [facility] Medigap Part B [id number] Self [id number] 12 [facility] Opt Medigap Part B [id number] Self [id number] 12 [facility] Medigap Part B [id number] Self [id number] 12 [facility] Medigap Part B [id number] Self [id number] 12 [facility] Opt Medigap Part B Plan [id number] Self Plan F [facility] Opt Medigap Part B [id number] 12 [id number] Self [id number] 12 [facility] Opt Medigap Part B [id number] Self [id number] 12 [facility] Opt Medigap Part B [id number] Self [id number] 12 [facility] [id number] Tamika [id number] MEDICARE [id number] SP [id number] B AARP O [id number] S [id number] MEDICARE C [id number] S [id number] B [employer] [place] [employer] Commercial [id number] AARP S [id number] S [id number] 3 BS Angela Trad/MX Commercial [id number] MEDICARE [id number] SP [id number] [id number] Aar Medigap Part B [id number] 0232.0 Self [id number] Medicare Part B Medicare Primary [id number] Self [id number] MEDICARE C [id number] S [id number] [id number] [facility] OPTIONS [id number] SP [id number] [employer] [place] [employer] Commercial [id number] [employer] [place] [employer] Medigap Part B [id number] AARP O [id number] S [id number] 612 [facility] Medigap Part B [id number] 0232.0 Self [id number] BS Angela Trad/MX Medigap Part B [id number] Medicare Part B Medicare Primary [id number] Self [id number] [employer] [place] [employer] Medigap Part B [id number] Medicare Part B Medicare Primary [id number] Self BS Angela Trad/MX Medigap Part B [id number] [employer] Commercial [id number] Self BS [place] [employer]ad/MX Medigap Part B [id number] Medicare Medicare Primary [id number] Self Problems, Conditions, and Diagnoses No Information Surgeries/Procedures Procedure Description Date Indications Data Source(s) Magnetic Resonance Angiogtaphy Head W/O Contrast Material(S) 11/08/2020 12:00:00 AM EDT [facility] ([facility] ) Magnetic Resonance Angiogtaphy Head W/O Contrast Material(S) 11/08/2020 12:00:00 AM EDT [facility] ([facility] ) MRI BRAIN BRAIN STEM W/O CONTRAST MATERIAL 11/08/2020 12:00:00 AM EDT [facility] ([facility] ) MRI BRAIN BRAIN STEM W/O CONTRAST MATERIAL 11/08/2020 12:00:00 AM EDT [facility] ([facility] ) OFFICE OUTPATIENT VISIT 25 MINUTES 11/07/2020 12:00:00 AM EDT [facility] ([facility], ) Bone Mineral Density Test 2020 12:00:00 AM EDT [facility] FALLS RISK ASSESSMENT DOCUMENTED 11/08/2019 12:00:00 A M EDT [facility] ([facility] ) Results ID Date Data Source [id number] 07/28/2020 08:58:00 AM EDT [facility] ([facility]) Name Value Range Interpretation Code Description Data No rce(s) Supporting Document(s) Phosphate [Moles/volume] in Serum or Plasma 2.9 mg/dL 2.5-4.9 [facility] ID Date Data Source [id number] 07/28/2020 08:57:00 AM EDT [facility] ([facility]) Name Value Range Interpretation Code Description Data No rce(s) Supporting Document(s) Calcidiol [Mass/volume] in Serum or Plasma Laboratory test result [facility] This test was performed using FastPack I P Vitamin D immunoassay kit. Values obtained with different assay methods should not be used interchangeably. ID Date Data Source [id number] 07/28/2020 08:57:00 AM EDT [facility] ([facility]) Name Value Range Interpretation Code Description Data No rce(s) Supporting Document(s) Magnesium 2.0 mg/dL 1.8-2.4 [facility]) ID Date Data Source [id number] 07/28/2020 08:57:00 AM EDT [facility] ([facility]) Name Value Range Interpretation Code Description Data No rce(s) Supporting Document(s) Glucose [Mass/volume] in Serum or Plasma 101 mg/dL 74-99 [facility] ([facility]) 100-125 mg/dL PRE-DIABETES/FASTING >126 mg/dL DIABETES/FASTING Creatinine 0.7 mg/dL 0.6-1.3 [facility] ([facility]) Urea nitrogen [Mass/volume] in Serum or Plasma 14 mg/dL 7-18 [facility] ([facility]) Sodium [Moles/volume] in Serum or Plasma 148 meq/L 136-145 [facility] ([facility]) NOTE: LYTES VERIFIED Chloride [Moles/volume] in Serum or Plasma 112 meq/L 98-107 [facility] ([facility]) Potassium [Moles/volume] in Serum or Plasma 3.6 meq/L 3.5-5.1 [facility] ([facility]) Calcium [Mass/volume] in Serum or Plasma 9.5 mg/dL 8.5-10.1 [facility] ([facility]) Glomerular filtration rate/1.73 sq M pre dicted among non-blacks [Volume Rate/Area] in Serum or Plasma by Creatinine-based formula (MDRD) Laboratory test result [facility] ([facility] ) Carbon dioxide, total [Moles/volume] in Serum or Plasma 28 meq/L 21 -32 [facility] ([facility]) Glomerular filtration rate/1.73 sq M pre dicted among blacks [Volume Rate/Area] in Serum or Plasma by Creatinine-based formula (MDRD) Laboratory test result [facility]) <content>CHRONIC KIDNEY DISEASE STAGING PER NKF</content>
<content></content>
<content>STAGE I & II GFR >= 60 NORMAL TO MILDLY DECREASED</content>
<content>STAGE III GFR 30-59 MODERATELY DECREASED</content>
<content>STAGE IV GFR 15-29 SEVERELY DECREASED</content>
<content>STAGE V GFR <15 VERY LITTLE GFR LEFT</content>
<content>ESRD GFR <15 ON REVENUE ACCOUNTING MANAGER</content>
<content></content> ID Date Data Source [id number] 07/14/2020 07:27:00 AM EDT [facility] ([facility]) Name Value Range Interpretation Code Description Data No rce(s) Supporting Document(s) Erythrocyte sedimentation rate by Westergren method 5 mm/hr 0-15 [facility] ([facility]) ID Date Data Source [id number] 07/14/2020 07:27:00 AM EDT [facility] ([facility]) Name Value Range Interpretation Code Description Data No rce(s) Supporting Document(s) Glucose [Mass/volume] in Serum or Plasma 105 mg/dL 74-99 [facility] ([facility]) 100-125 mg/dL PRE-DIABETES/FASTING >126 mg/dL DIABETES/FASTING Urea nitrogen [Mass/volume] in Serum or Plasma 12 mg/dL 7-18 [facility] ([facility]) Creatinine 0.9 mg/dL 0.6-1.3 [facility] Sodium [Moles/volume] in Serum or Plasma 143 meq/L 136-145 [facility] ([facility]) Chloride [Moles/volume] in Serum or Plasma 109 meq/L 98-107 [facility] ([facility]) Potassium [Moles/volume] in Serum or Plasma 3.8 meq/L 3.5-5.1 [facility] ([facility]) Alkaline phosphatase isoenzyme [Units/volume] in Serum or Pl asma 95 mg/dL 46-116 [facility] ([facility]) Calcium [Mass/volume] in Serum or Plasma 8.9 mg/dL 8.5-10.1 [facility] ([facility]) Carbon dioxide, total [Moles/volume] in Serum or Plasma 31 meq/L 21 -32 [facility] ([facility]) Total Bilirubin 0.6 mg/dL 0.2-1.0 [facility] ([facility]) Aspartate aminotransferase [Enzymatic activity/volume] in Serum or Plasma 28 U/L 15-37 [facility] ([facility] ) Alanine aminotransferase [Enzymatic activity/volume] in Seru m or Plasma 32 U/L 12-78 [facility] ([facility]) Proteinase 3 Ab [Units/volume] in Serum 5.9 g/dL 6.4-8.2 [facility] ([facility]) Albumin [Mass/volume] in Serum or Plasma 3.2 g/dL 3.4-5.0 [facility] ([facility]) A/G Ratio 1.19 CALC 1.00-1.90 [facility] Glomerular filtration rate/1.73 sq M pre dicted among non-blacks [Volume Rate/Area] in Serum or Plasma by Creatinine-based formula (MDRD) Laboratory test result [facility] ([facility] ) Glomerular filtration rate/1.73 sq M pre dicted among blacks [Volume Rate/Area] in Serum or Plasma by Creatinine-based formula (MDRD) Laboratory test result [facility] <content>CHRONIC KIDNEY DISEASE STAGING PER NKF</content>
<content></content>
<content>STAGE I & II GFR >= 60 NORMAL TO MILDLY DECREASED</content>
<content>STAGE III GFR 30-59 MODERATELY DECREASED</content>
<content>STAGE IV GFR 15-29 SEVERELY DECREASED</content>
<content>STAGE V GFR <15 VERY LITTLE GFR LEFT</content>
<content>ESRD GFR <15 ON REVENUE ACCOUNTING MANAGER</content>
<content></content> ID Date Data Source [id number] 07/14/2020 07:27:00 AM EDT [facility] ([facility]) Name Value Range Interpretation Code Description Data No rce(s) Supporting Document(s) Hemoglobin [Mass/volume] in Blood 12.5 g/dL 12.0-18.0 [facility] ([facility]) Leukocytes [#/volume] in Blood by Automated count 4.4 x10*3/UL 4.1-10 .9 [facility] ([facility]) Erythrocytes [#/volume] in Blood by Automated count 4.13 x10*6/UL 4.2 0-6.30 [facility] ([facility] Hematocrit [Volume Fraction] of Blood by Automated count 37.8 % 3 7.0-51.0 [facility] ([facility]) MCV 91.6 fL 80.0-97.0 [facility] Erythrocyte distribution width [Ratio] by Automated count 14.6 % 11.6-13.7 [facility] ([facility]) MCHC 33.1 g/dL 31.0-38.0 [facility] MCH 30.3 pg 26.0-32.0 [facility] ([facility] MPV 9.8 FL 7.8-11.0 [facility] ([facility]) Platelets [#/volume] in Blood by Automated count 113 x10*3/UL 140-440 [facility] ([facility]) Mid % 4.4 % 1.7-9.3 [facility] Lymph % 17.3 % 10.0-58.5 [facility] ([facility] Neut % 78.3 % 37.0-92.0 [facility] ([facility]) Mid # 0.2 x10*3/UL 0.1-0.6 [facility] ([facility]) Lymph # 0.7 x10*3/UL 0.6-4.1 [facility] ([facility]) Neut # 3.5 x10*3/UL 2.0-7.8 [facility] ([facility]) ID Date Data Source [id number] 06/08/2020 07:52:00 PM EDT [facility] ([facility]) Name Value Range Interpretation Code Description Data No rce(s) Supporting Document(s) Laboratory test finding (navigational concept) 0.00 ng/mL 0.00-0.08 [facility] ([facility]) ID Date Data Source [id number] 06/08/2020 07:28:00 PM EDT [facility] ([facility]) Name Value Range Interpretation Code Description Data No rce(s) Supporting Document(s) Thyrotropin [Units/volume] in Serum or Plasma by Detec tion limit <= 0.05 mIU/L 1.540 uIU/ML 0.358-3.740 [facility] ([facility] ) Lipoprotein lipase [Enzymatic activity/volume] in Serum or P lasma 157 U/L 73-393 [facility] ([facility]) Thyroxine (T4) free [Mass/volume] in Serum or Plasma 1.11 ng/dL 0.76- 1.46 [facility] ([facility]) ID Date Data Source [id number] 06/08/2020 07:28:00 PM EDT [facility] ([facility]) Name Value Range Interpretation Code Description Data [facility] rce(s) Supporting Document(s) Glucose, Fasting 100 mg/dL 70-100 [facility] ([facility]) Creatinine For GFR 0.75 mg/dL 0.55-1.30 [facility] ([facility]) Blood Urea Nitrogen 17 mg/dL 7-18 [facility] ([facility]) Potassium Serum 4.5 meq/L 3.5-5.1 [facility] ([facility]) Testing was performed on a SLIGHTLY hemo lyzed specimen. Suggest recollection of specimen for more accurate test results. Glomerular Filtration Rate Laboratory test result [facility] <content>Units are mL/min/1.73 m2</content>
<content></content>
<content>Chronic Kidney Disease Staging per NKF:</content>
<content></content>
<content>Stage I & II GFR >=60 Normal to Mildly Decreased</content>
<content>Stage III GFR 30- 59 Moderately Decreased</content>
<content>Stage IV GFR 15-29 Severely Decreased</content>
<content>Stage V GFR <15 Very Little GFR Left</content>
<content>ESRD GFR <15 on REVENUE ACCOUNTING MANAGER</content>
<content></content> Sodium Level 144 meq/L 136-145 [facility] ([facility]) Carbon Dioxide Level 29 meq/L 21-32 [facility] Chloride Level 114 meq/L 98-107 [facility] Calcium Level 9.0 mg/dL 8.8-10.2 [facility] ([facility]) Anion Gap 1 meq/L 8-16 [facility] ([facility] ID Date Data Source [id number] 06/08/2020 07:28:00 PM EDT [facility] Name Value Range Interpretation Code Description Data No rce(s) Supporting Document(s) Alkaline Phosphatase 92 U/L 45-117 [facility] Alt/SGPT 30 U/L 12-78 [facility] ([facility] Ast/Sgot 35 U/L 7-37 [facility] ([facility]) Bilirubin,Direct Laboratory test result 0.0-0.2 [facility] Bilirubin,Total 0.5 mg/dL 0.2-1.0 [facility] ([facility]) Albumin 2.9 GM/DL 3.2-5.2 [facility] ([facility] Total Protein 5.6 GM/DL 6.4-8.2 [facility] ([facility]) Albumin/Globulin Ratio 1.1 1.2-2.2 [facility] ([facility] ID Date Data Source [id number] 06/08/2020 07:28:00 PM EDT [facility] ([facility] Name Value Range Interpretation Code Description Data No rce(s) Supporting Document(s) CK-MB Value Mass Laboratory test result [facility] ([facility]) CPK Creatine Phosphokinase 73 U/L 26-192 [facility] ([facility]) MB/CK Relative Index 1.37 [facility] ([facility] <content>DIAGNOSIS CRITERIA</content>
<content>MMB ng/ml Relative Index (RI)</content>
<content>NON-AMI < or = 5 N/A</content>
<content>JAVIER ZONE > 5 < or = 4</content>
<content>AMI > 5 > 4</content>
<content></content> Troponin I 0.02 ng/mL [facility] <content>Troponin I Reference Interval f or Siemens [employer]wright LOCI:</content>
<content></content>
<content>99th Percentile= 0.00-0.045 ng/ml</content>
<content></content>
<content>Risk Stratification:</content>
<content><= 0.10 ng/ml Decreased Risk for Adverse Clinical</content>
<content>Events.</content>
<content>0.10-1.50 ng/ml Increased Risk for Adverse Clinical</content>
<content>Events. Evaluation of additional</content>
<content>criterion and/or repeat testing in 2-6</content>
<content>hours is suggested to rule out myocardial</content>
<content>damage.</content>
<content>>= 1.50 ng/ml Indicative of Myocardial Injury.</content>
<content></content> ID Date Data Source [id number] 06/08/2020 07:28:00 PM EDT [facility] Name Value Range Interpretation Code Description Data No rce(s) Supporting Document(s) Platelets reticulated/100 platelets in Blood by Automated count 7.8 % 0.0-9.59 [facility] ID Date Data Source [id number] 06/08/2020 07:28:00 PM EDT [facility] ([facility] Name Value Range Interpretation Code Description Data No rce(s) Supporting Document(s) White Blood Count 3.8 10 4.0-10.0 [facility] ([facility]) Hemoglobin 11.8 g/dL 12.0-15.5 [facility] Red Blood Count 3.93 10 4.00-5.40 [facility] ([facility]) Mean Corpuscular Volume 96.7 fl 80.0-96.0 [facility] ([facility]) Mean Corpuscular Hemoglobin 30.0 pg 27.0-33.0 [facility] ([facility]) Hematocrit 38.0 % 36.0-47.0 [facility] Mean Corpuscular HGB Conc 31.1 g/dL 32.0-36.5 [facility] ([facility]) Red Cell Distribution Width 14.2 % 11.5-14.5 [facility] ([facility]) Neutrophils % 64.3 % 36.0-66.0 [facility] ([facility]) Platelet Count, Automated 75 10 150-450 [facility] ([facility]) Eos % 5.0 % 0.0-3.0 [facility] Lymph % 19.2 % 24.0-44.0 [facility]) [place] % 10.2 % 2.0-8.0 [facility] Baso % 1.3 % 0.0-1.0 [facility] Immature Granulocyte % 0.0 % 0-3.0 [facility] ([facility]) Nucleated Red Blood Cell % 0.0 % 0-0 [facility] ([facility]) Neutrophils # 2.5 10 1.5-8.5 [facility] ([facility]) Lymph # 0.7 10 1.5-5.0 [facility] Eos # 0.2 10 0.0-0.5 [facility]) [place] # 0.4 10 0.0-0.8 [facility] Baso # 0.1 10 0.0-0.2 [facility] ID Date Data Source [id number] 01/18/2020 08:43:00 AM EST [facility] ([facility]) Name Value Range Interpretation Code Description Data No rce(s) Supporting Document(s) Lipoprotein lipase [Enzymatic activity/volume] in Serum or P lasma 206 U/L 73-393 [facility] ([facility]) Amylase [Enzymatic activity/volume] in Serum or Plasma 97 U/L 25- 115 [facility] ([facility]) ID Date Data Source [id number] 01/18/2020 08:41:00 AM EST [facility] ([facility]) Name Value Range Interpretation Code Description Data No rce(s) Supporting Document(s) Calcidiol [Mass/volume] in Serum or Plasma 48.8 24.0-80.0 [facility] ([facility]) This test was performed using FastPack I P Vitamin D immunoassay kit. Values obtained with different assay methods should not be used interchangeably. ID Date Data Source [id number] 01/18/2020 08:40:00 AM EST [facility] ([facility]) Name Value Range Interpretation Code Description Data No rce(s) Supporting Document(s) Glucose [Mass/volume] in Serum or Plasma 124 mg/dL 74-99 [facility] ([facility]) 100-125 mg/dL PRE-DIABETES/FASTING >126 mg/dL DIABETES/FASTING Urea nitrogen [Mass/volume] in Serum or Plasma 17 mg/dL 7-18 [facility] ([facility]) Creatinine 1.0 mg/dL 0.6-1.3 [facility] ([facility]) Sodium [Moles/volume] in Serum or Plasma 143 meq/L 136-145 [facility] ([facility]) Potassium [Moles/volume] in Serum or Plasma 3.7 meq/L 3.5-5.1 [facility] ([facility]) Carbon dioxide, total [Moles/volume] in Serum or Plasma 28 meq/L 21 -32 [facility] ([facility]) Chloride [Moles/volume] in Serum or Plasma 109 meq/L 98-107 [facility] ([facility]) Alkaline phosphatase isoenzyme [Units/volume] in Serum or Pl asma 75 mg/dL 46-116 [facility] ([facility]) Calcium [Mass/volume] in Serum or Plasma 9.2 mg/dL 8.5-10.1 [facility] ([facility]) Aspartate aminotransferase [Enzymatic activity/volume] in Serum or Plasma 45 U/L 15-37 [facility] ([facility] ) Total Bilirubin 0.9 mg/dL 0.2-1.0 [facility] [facility]) Alanine aminotransferase [Enzymatic activity/volume] in Seru m or Plasma 45 U/L 12-78 [facility] ([facility]) Albumin [Mass/volume] in Serum or Plasma 3.0 g/dL 3.4-5.0 [facility] ([facility]) A/G Ratio 1.00 CALC 1.00-1.90 [facility]) Proteinase 3 Ab [Units/volume] in Serum 6.0 g/dL 6.4-8.2 [facility] Glomerular filtration rate/1.73 sq M pre dicted among non-blacks [Volume Rate/Area] in Serum or Plasma by Creatinine-based formula (MDRD) 54 mL/min [facility] Glomerular filtration rate/1.73 sq M pre dicted among blacks [Volume Rate/Area] in Serum or Plasma by Creatinine-based formula (MDRD) Laboratory test result [facility]) <content>CHRONIC KIDNEY DISEASE STAGING PER NKF</content>
<content></content>
<content>STAGE I & II GFR >= 60 NORMAL TO MILDLY DECREASED</content>
<content>STAGE III GFR 30-59 MODERATELY DECREASED</content>
<content>STAGE IV GFR 15-29 SEVERELY DECREASED</content>
<content>STAGE V GFR <15 VERY LITTLE GFR LEFT</content>
<content>ESRD GFR <15 ON REVENUE ACCOUNTING MANAGER</content>
<content></content> ID Date Data Source [id number] 01/18/2020 08:40:00 AM EST [facility] ([facility]) Name Value Range Interpretation Code Description Data No rce(s) Supporting Document(s) Erythrocytes [#/volume] in Blood by Automated count 3.98 x10*6/UL 4.2 0-6.30 [facility] ([facility]) Leukocytes [#/volume] in Blood by Automated count 5.7 x10*3/UL 4.1-10 .9 [facility] Hematocrit [Volume Fraction] of Blood by Automated count 36.8 % 3 7.0-51.0 [facility] Hemoglobin [Mass/volume] in Blood 12.4 g/dL 12.0-18.0 [facility] ([facility]) MCV 92.3 fL 80.0-97.0 [facility] ([facility]) MCH 31.2 pg 26.0-32.0 [facility] ([facility] MCHC 33.8 g/dL 31.0-38.0 [facility] ([facility]) Erythrocyte distribution width [Ratio] by Automated count 14.5 % 11.6-13.7 [facility] MPV 10.3 FL 7.8-11.0 [facility] ([facility]) Platelets [#/volume] in Blood by Automated count 141 x10*3/UL 140-440 [facility] ([facility]) Mid % 3.7 % 1.7-9.3 [facility] ([facility]) Lymph % 16.8 % 10.0-58.5 [facility] ([facility]) Neut % 79.5 % 37.0-92.0 [facility] ([facility]) Lymph # 0.9 x10*3/UL 0.6-4.1 [facility] ([facility]) Neut # 4.6 x10*3/UL 2.0-7.8 [facility] ([facility]) Mid # 0.2 x10*3/UL 0.1-0.6 [facility] ([facility]) ID Date Data Source [id number] 11/15/2019 08:13:00 AM EDT [facility] Name Value Range Interpretation Code Description Data No rce(s) Supporting Document(s) Lipoprotein lipase [Enzymatic activity/volume] in Serum or P lasma 1781 U/L 73-393 [facility] ([facility]) ID Date Data Source [id number] 11/15/2019 08:13:00 AM EDT [facility] ([facility]) Name Value Range Interpretation Code Description Data No rce(s) Supporting Document(s) Glucose, Fasting 105 mg/dL 70-100 [facility] ([facility]) Blood Urea Nitrogen 20 mg/dL 7-18 [facility] ([facility]) Creatinine For GFR 0.86 mg/dL 0.55-1.30 [facility] ([facility]) Glomerular Filtration Rate Laboratory test result [facility] ([facility]) <content>Units are mL/min/1.73 m2</content>
<content></content>
<content>Chronic Kidney Disease Staging per NKF:</content>
<content></content>
<content>Stage I & II GFR >=60 Normal to Mildly Decreased</content>
<content>Stage III GFR 30-59 Moderately Decreased</content>
<content>Stage IV GFR 15-29 Severely Decreased</content>
<content>Stage V GFR <15 Very Little GFR Left</content>
<content>ESRD GFR <15 on REVENUE ACCOUNTING MANAGER</content>
<content></content> Potassium Serum 4.2 meq/L 3.5-5.1 [facility] ([facility]) Sodium Level 143 meq/L 136-145 [facility] ([facility]) Carbon Dioxide Level 27 meq/L 21-32 [facility] ([facility]) Chloride Level 111 meq/L 98-107 [facility] ([facility]) Anion Gap 5 meq/L 8-16 [facility]) Calcium Level 8.9 mg/dL 8.8-10.2 [facility] ([facility]) ID Date Data Source [id number] 11/15/2019 08:13:00 AM EDT [facility] ([facility]) Name Value Range Interpretation Code Description Data No rce(s) Supporting Document(s) Ast/Sgot 54 U/L 7-37 [facility] ([facility]) Alkaline Phosphatase 103 U/L 45-117 [facility] ( [facility]) Alt/SGPT 70 U/L 12-78 [facility] ([facility]) Total Protein 5.6 GM/DL 6.4-8.2 [facility] ([facility]) Bilirubin,Total 1.8 mg/dL 0.2-1.0 [facility] ([facility]) Bilirubin,Direct 0.7 mg/dL 0.0-0.2 [facility] ([facility]) Albumin/Globulin Ratio 0.9 1.2-2.2 [facility] ([facility]) Albumin 2.7 GM/DL 3.2-5.2 [facility] ([facility]) ID Date Data Source [id number] 11/15/2019 08:13:00 AM EDT [facility] ([facility]) Name Value Range Interpretation Code Description Data No rce(s) Supporting Document(s) White Blood Count 12.7 10 4.0-10.0 [facility] ([facility]) Red Blood Count 4.09 10 4.00-5.40 [facility] ([facility]) Hematocrit 39.4 % 36.0-47.0 [facility] ([facility]) Mean Corpuscular Volume 96.3 fl 80.0-96.0 [facility] ([facility]) Hemoglobin 12.7 g/dL 12.0-15.5 [facility] ([facility]) Mean Corpuscular Hemoglobin 31.1 pg 27.0-33.0 [facility] ([facility]) Mean Corpuscular HGB Conc 32.2 g/dL 32.0-36.5 [facility] ([facility]) Red Cell Distribution Width 14.4 % 11.5-14.5 [facility] ([facility]) Neutrophils % 88.2 % 36.0-66.0 [facility] ([facility]) Platelet Count, Automated 117 10 150-450 [facility] ([facility]) Lymph % 4.5 % 24.0-44.0 [facility] ([facility]) Baso % 0.3 % 0.0-1.0 [facility] [place] % 5.8 % 0.0-5.0 [facility] ([facility]) Eos % 0.4 % 0.0-3.0 [facility] ([facility]) Neutrophils # 11.2 10 1.5-8.5 [facility] ([facility]) Nucleated Red Blood Cell % 0.0 % 0-0 [facility] ([facility]) Immature Granulocyte % 0.8 % 0-3.0 [facility] ([facility]) Lymph # 0.6 10 1.5-5.0 [facility] ([facility] [place] # 0.7 10 0.0-0.8 [facility] ([facility]) Eos # 0.1 10 0.0-0.5 [facility] ([facility]) Baso # 0.0 10 0.0-0.2 [facility] ([facility]) ID Date Data Source [id number] 11/14/2019 09:40:00 AM EDT [facility] ([facility]) Name Value Range Interpretation Code Description Data No rce(s) Supporting Document(s) Lipoprotein lipase [Enzymatic activity/volume] in Serum or P lasma 563402 U/L 73-393 [facility] ([facility]) tube:CHECK THE ACTUAL SPECIMEN DILUTION tube:CHECK THE ACTUAL SPECIMEN DILUTION ID Date Data Source [id number] 11/14/2019 09:40:00 AM EDT [facility] ([facility]) Name Value Range Interpretation Code Description Data No rce(s) Supporting Document(s) Ast/Sgot 67 U/L 7-37 [facility] ([facility]) Alkaline Phosphatase 116 U/L 45-117 [facility] ([facility]) Alt/SGPT 80 U/L 12-78 [facility] ([facility]) Total Protein 5.9 GM/DL 6.4-8.2 [facility] ([facility]) Bilirubin,Direct 0.9 mg/dL 0.0-0.2 [facility] ([facility]) Bilirubin,Total 1.9 mg/dL 0.2-1.0 [facility] ([facility]) Albumin 3.0 GM/DL 3.2-5.2 [facility] Albumin/Globulin Ratio 1.0 1.2-2.2 [facility] ([facility]) ID Date Data Source [id number] 11/14/2019 04:09:00 AM EDT [facility] ([facility]) Name Value Range Interpretation Code Description Data No rce(s) Supporting Document(s) Laboratory test finding (navigational concept) 42.0 % 38.0-51.0 [facility] ([facility]) Laboratory test finding (navigational concept) 143 meq/L 136-145 [facility] ([facility]) Laboratory test finding (navigational concept) 3.6 meq/L 3.5-5.1 [facility] ([facility]) Laboratory test finding (navigational concept) 123 mg/dL 70-105 [facility] ([facility]) Laboratory test finding (navigational concept) 5.4 mg/dL 4.5-5.3 [facility] ([facility]) Laboratory test finding (navigational concept) 106 meq/L 98-109 [facility] ([facility]) Laboratory test finding (navigational concept) 23.0 MM/L 23.0-27.0 [facility] ([facility]) Laboratory test finding (navigational concept) 0.9 mg/dL 0.6-1.3 [facility] ([facility]) Laboratory test finding (navigational concept) 14 mg/dL 8-26 [facility] ([facility]) ID Date Data Source [id number] 11/14/2019 03:57:00 AM EDT [facility] ([facility]) Name Value Range Interpretation Code Description Data No rce(s) Supporting Document(s) Lipoprotein lipase [Enzymatic activity/volume] in Serum or P lasma 86067 U/L 73-393 [facility] ([facility]) ID Date Data Source [id number] 11/14/2019 03:57:00 AM EDT [facility] ([facility]) Name Value Range Interpretation Code Description Data No rce(s) Supporting Document(s) Alt/SGPT 89 U/L 12-78 [facility] ([facility]) Ast/Sgot 79 U/L 7-37 [facility] ([facility]) Alkaline Phosphatase 117 U/L 45-117 [facility] ([facility]) Bilirubin,Total 3.3 mg/dL 0.2-1.0 [facility] ([facility]) Bilirubin,Direct 1.4 mg/dL 0.0-0.2 [facility] ([facility]) Total Protein 6.3 GM/DL 6.4-8.2 [facility] ([facility]) Albumin 3.1 GM/DL 3.2-5.2 [facility] ([facility]) Albumin/Globulin Ratio 1.0 1.2-2.2 [facility] ([facility]) ID Date Data Source [id number] 11/14/2019 03:57:00 AM EDT [facility] ([facility]) Name Value Range Interpretation Code Description Data [facility] Supporting Document(s) White Blood Count 13.7 10 4.0-10.0 [facility] ([facility]) Red Blood Count 4.54 10 4.00-5.40 [facility] ([facility]) Hematocrit 44.2 % 36.0-47.0 [facility] ([place]) Hemoglobin 13.9 g/dL 12.0-15.5 [facility] ([facility]) Mean Corpuscular HGB Conc 31.4 g/dL 32.0-36.5 [facility] ([facility]) Mean Corpuscular Volume 97.4 fl 80.0-96.0 [facility] ([facility]) Mean Corpuscular Hemoglobin 30.6 pg 27.0-33.0 [facility] ([facility]) Platelet Count, Automated 145 10 150-450 [facility] ([facility]) Red Cell Distribution Width 14.2 % 11.5-14.5 [facility] ([facility]) Neutrophils % 80.8 % 36.0-66.0 [facility] [facility]) Lymph % 7.6 % 24.0-44.0 [facility]) Baso % 0.7 % 0.0-1.0 [facility]) Eos % 2.0 % 0.0-3.0 [facility]) [place] % 8.5 % 0.0-5.0 [facility]) Nucleated Red Blood Cell % 0.0 % 0-0 [facility] ([facility]) Immature Granulocyte % 0.4 % 0-3.0 [facility] ([facility]) Lymph # 1.1 10 1.5-5.0 [facility]) [place] # 1.2 10 0.0-0.8 [facility]) Neutrophils # 11.1 10 1.5-8.5 [facility] ([facility]) Eos # 0.3 10 0.0-0.5 [facility]) Baso # 0.1 10 0.0-0.2 [facility]) Procedure Social History No Information Vital Signs ID Date Data Source [id number] Name Value Range Interpretation Code Description Data Source(s) [facility]stolic blood pressure 118 mm[Hg] 118 [facility]Hg[facility] Diastolic blood pressure 80 mm[Hg] 80 [facility] Heart rate 64 /min 64 /min [facility] ([facility] ) Respiratory rate 16 /min 16 /min [facility] ( [facility] ) Diastolic blood pressure 72 mm[Hg] 72 mm[Hg] [facility] ([facility]) RT Arm Systolic blood pressure 124 mm[Hg] 124 mm[Hg] [facility] RT Arm Heart rate 64 /min 64 /min [facility] ([facility]) Body height 62.25 [in_i] 62.25 [in_i] [facility] 5'2.25" Body weight 133.50 [lb_av] 133.50 [lb_av] [facility] ([facility]) Body mass index (BMI) [Ratio] 24.2 kg/m2 24.2 k g/m2 [facility] ([facility]) Systolic blood pressure 116 mm[Hg] 116 mm[Hg] M [facility] ([facility]) RT Arm Diastolic blood pressure 70 mm[Hg] 70 mm[Hg] [facility] ([facility]) RT Arm Heart rate 64 /min 64 /min [facility] ([facility]) Body height 62.25 [in_i] 62.25 [in_i] [facility] ([facility]) 5'2.25" Body weight 132.50 [lb_av] 132.50 [lb_av] [facility] ([facility]) Body mass index (BMI) [Ratio] 24.0 kg/m2 24.0 k g/m2 [facility] ([facility]) Systolic blood pressure 124 mm[Hg] 124 mm[Hg] M [facility] ([facility]) Diastolic blood pressure 68 mm[Hg] 68 mm[Hg] [facility] ([facility]) Heart rate 56 /min 56 /min [facility] ([facility]) Body height 62.25 [in_i] 62.25 [in_i] [facility] ([facility]) 5'2.25" Body weight 129.00 [lb_av] 129.00 [lb_av] [facility] ([facility]) Oxygen saturation in Arterial blood by Pulse oximetry 99 % 99 % [facility] Air Body mass index (BMI) [Ratio] 23.4 kg/m2 23.4 k g/m2 [facility] ([facility]) Body weight 123.50 [lb_av] 123.50 [lb_av] [facility] T ([facility], ) Systolic blood pressure 122 mm[Hg] 122 mm[Hg] M [facility] ([facility], ) Heart rate 52 /min 52 /min [facility] ([facility] ) Respiratory rate 16 /min 16 /min [facility] ( [facility], ) Diastolic blood pressure 80 mm[Hg] 80 mm[Hg] [facility] ([facility], )
[2021-01-06 06:30] VITALS: BP 145/65
== END 2021-01-06 06:52 | disposition home or self-care (01) ==
LOC: M ED 04:52
DX: S00.432A Contusion of left ear, initial encounter (principal); W06.XXXA Fall from bed, initial encounter; Y92.099 Unspecified place in other non-institutional residence as the place of occurrence of the external cause; Y93.89 Activity, other specified; Y99.9 Unspecified external cause status; Z86.73 Personal history of transient ischemic attack (TIA), and cerebral infarction without residual deficits; Z79.82 Long term (current) use of aspirin; Z79.899 Other long term (current) drug therapy; Z91.041 Radiographic dye allergy status; Z88.0 Allergy status to penicillin; Z88.2 Allergy status to sulfonamides

== ENCOUNTER → 2021-01-24 | Outpatient (REF) | payer MEDICARE ==
[~2021-01-24] MED LIST changes: +ACET32TAB PO; +LOSA100T45 PO; -LOSA100T50 PO; +LOSA50TA28 PO; -LOSA50TA88 PO
== END ==
LOC: M LAB REF 11:29
PROVIDERS: ATTEND Internal Medicine
DX: M06.9 Rheumatoid arthritis, unspecified (principal)

== ENCOUNTER → 2021-03-08 | Outpatient (REF) | payer MEDICARE ==
[~2021-03-08] MED LIST changes: -ACET32TAB PO
== END ==
LOC: M LAB REF 12:18
PROVIDERS: ATTEND Internal Medicine
DX: Z79.899 Other long term (current) drug therapy (principal)

== ENCOUNTER 2021-03-24 10:43 | Emergency (ER) | payer MEDICARE ==
[2021-03-24 11:05] VITALS: BP 189/88
[2021-03-24] MEDS ORDERED: ACET32TAB PO (13:23)
== END 2021-03-24 15:06 | disposition home or self-care (01) ==
LOC: M ED 10:43
DX: S22.32XA Fracture of one rib, left side, initial encounter for closed fracture (principal); W19.XXXA Unspecified fall, initial encounter; Y92.009 Unspecified place in unspecified non-institutional (private) residence as the place of occurrence of the external cause; Y93.9 Activity, unspecified; Y99.9 Unspecified external cause status; I10 Essential (primary) hypertension; E78.5 Hyperlipidemia, unspecified; Z86.73 Personal history of transient ischemic attack (TIA), and cerebral infarction without residual deficits; M25.722 Osteophyte, left elbow; M19.022 Primary osteoarthritis, left elbow; M47.812 Spondylosis without myelopathy or radiculopathy, cervical region; Z79.82 Long term (current) use of aspirin; Z79.899 Other long term (current) drug therapy; Z91.041 Radiographic dye allergy status; Z88.0 Allergy status to penicillin; Z88.2 Allergy status to sulfonamides

== ENCOUNTER → 2021-04-12 | Outpatient (REF) | payer MEDICARE ==
[~2021-04-12] MED LIST changes: +ACET32TAB PO
== END ==
LOC: M LAB REF 11:48
PROVIDERS: ATTEND Internal Medicine
DX: Z79.899 Other long term (current) drug therapy (principal)

== ENCOUNTER → 2021-08-02 | Outpatient (REF) | payer MEDICARE ==
[2021-08-02 12:14] LABS: PERCENT SATURATION 12.3 % (13.2-45.0); PHOSPHORUS LEVEL 2.3 MG/DL (2.5-4.9)
== END ==
LOC: M LAB REF 10:59
PROVIDERS: ATTEND Internal Medicine
DX: M81.0 Age-related osteoporosis without current pathological fracture (principal); Z79.899 Other long term (current) drug therapy; D64.9 Anemia, unspecified

== ENCOUNTER → 2021-08-06 | Outpatient (REF) | payer MEDICARE ==
[2021-08-06 17:26] LABS: HEPATITIS B CORE ANTIBODY IGM NEGATIVE (NEGATIVE); HEPATITIS B SURFACE ANTIGEN NEGATIVE (NEGATIVE); HEPATITIS C VIRUS ABY INDEX 0.1 INDEX (<0.8)
== END ==
LOC: M LAB REF 12:37
PROVIDERS: ATTEND Internal Medicine
DX: R74.01 Elevation of levels of liver transaminase levels (principal); M81.0 Age-related osteoporosis without current pathological fracture; D64.9 Anemia, unspecified

== ENCOUNTER → 2021-08-17 | Outpatient (CLI) | payer MEDICARE | LOC: M RAD 06:58 | PROVIDERS: ATTEND Internal Medicine | DX: R79.89 Other specified abnormal findings of blood chemistry (principal); K80.20 Calculus of gallbladder without cholecystitis without obstruction; K76.89 Other specified diseases of liver ==

== ENCOUNTER → 2021-10-31 | Outpatient (REF) | payer MEDICARE | LOC: M LAB REF 12:03 | PROVIDERS: ATTEND Internal Medicine | DX: M81.0 Age-related osteoporosis without current pathological fracture (principal); Z79.899 Other long term (current) drug therapy ==

== ENCOUNTER → 2021-11-06 | Outpatient (REF) | payer MEDICARE | LOC: M LAB REF 16:10 | PROVIDERS: ATTEND Internal Medicine | DX: M81.0 Age-related osteoporosis without current pathological fracture (principal); Z79.899 Other long term (current) drug therapy ==

== ENCOUNTER → 2022-05-10 | Outpatient (REF) | payer MEDICARE | LOC: M LAB REF 11:56 | PROVIDERS: ATTEND Internal Medicine | DX: E83.42 Hypomagnesemia (principal); M81.0 Age-related osteoporosis without current pathological fracture; Z79.899 Other long term (current) drug therapy ==

== ENCOUNTER 2022-09-11 13:01 | Day surgery (SDC) | payer MEDICARE ==
[~2022-09-11] VITALS: Ht 172.7 cm; Wt 62.6 kg
[~2022-09-11 13:01] MED LIST changes: -ATEN25TA; +ATEN25TA PO; +BSS IRRIG/VANCO(10MG)/TOBRA(5MG)/EPINEPH(1:1000-0.5CC)500ML BAG-ORONLY IR ONE; +CEFUROXIME 1MG/0.1ML INTRACAMERAL INJ As Ordered ONE; -CITA20TA6; +CITA20TA6 PO; +CLOP75TA2 PO; +CYCLOPENTOLATE 1% OPHTH SOLN 2ML BTL OD SCH; +ECOT81TA5 PO; -ERGO500029; +ERGO500029 PO; +LIDOCAINE 1% SDV 5ML VIAL As Ordered ONE; +LIDOCAINE 3.5 % 1ML OPHTH TOPICAL GEL OU ONE; -LOSA100T45 PO; +LOSA100T46 PO; +MAGN400T2 PO; +OFLOXACIN 0.3 % (OCUFLOX) OPTH SOL 5ML OD ONE; +PHENYLEPHRINE 10% OPHTH SOL 5ML OD PRN; +PHENYLEPHRINE 2.5% OPHTH SOL 2ML OD SCH; +PROL60SO IM; +TROPICAMIDE 1% OPHTH SOLN 15ML OD SCH
[2022-09-11] MEDS ORDERED: MIDAZOLAM INJ 2MG/2ML VIAL As Ordered ONE (15:14)
[2022-09-11 15:52] VITALS: BP 135/90; TEMP 97.8; O2SAT 95
== END 2022-09-11 16:00 | disposition home or self-care (01) ==
LOC: M SDC 13:01
PROVIDERS: ATTEND Ophthalmology
DX: H25.11 Age-related nuclear cataract, right eye (principal); I10 Essential (primary) hypertension; E78.5 Hyperlipidemia, unspecified; K57.92 Diverticulitis of intestine, part unspecified, without perforation or abscess without bleeding; K44.9 Diaphragmatic hernia without obstruction or gangrene; K21.9 Gastro-esophageal reflux disease without esophagitis; M81.0 Age-related osteoporosis without current pathological fracture; Z86.73 Personal history of transient ischemic attack (TIA), and cerebral infarction without residual deficits; Z79.02 Long term (current) use of antithrombotics/antiplatelets; Z79.899 Other long term (current) drug therapy; Z91.018 Allergy to other foods; Z91.040 Latex allergy status; Z91.041 Radiographic dye allergy status; Z91.012 Allergy to eggs; Z88.2 Allergy status to sulfonamides; Z88.0 Allergy status to penicillin
CPT/HCPCS: 66984; J0697; J2250; V2632

== ENCOUNTER → 2022-11-11 | Outpatient (REF) | payer MEDICARE ==
[~2022-11-11] MED LIST changes: -BSS IRRIG/VANCO(10MG)/TOBRA(5MG)/EPINEPH(1:1000-0.5CC)500ML BAG-ORONLY IR ONE; -CEFUROXIME 1MG/0.1ML INTRACAMERAL INJ As Ordered ONE; -CYCLOPENTOLATE 1% OPHTH SOLN 2ML BTL OD SCH; -LIDOCAINE 1% SDV 5ML VIAL As Ordered ONE; -LIDOCAINE 3.5 % 1ML OPHTH TOPICAL GEL OU ONE; +MECL-209 PO; -MECL1TAB31 PO; -OFLOXACIN 0.3 % (OCUFLOX) OPTH SOL 5ML OD ONE; -PHENYLEPHRINE 10% OPHTH SOL 5ML OD PRN; -PHENYLEPHRINE 2.5% OPHTH SOL 2ML OD SCH; -TROPICAMIDE 1% OPHTH SOLN 15ML OD SCH
== END ==
LOC: M LAB REF 16:45
PROVIDERS: ATTEND Internal Medicine
DX: M81.0 Age-related osteoporosis without current pathological fracture (principal)

== ENCOUNTER 2022-11-27 06:04 | Day surgery (SDC) | payer MEDICARE ==
[~2022-11-27] VITALS: Ht 162.6 cm; Wt 63.5 kg
[~2022-11-27 06:04] MED LIST changes: +BSS IRRIG/VANCO(10MG)/TOBRA(5MG)/EPINEPH(1:1000-0.5CC)500ML BAG-ORONLY IR ONE; +CYCLOPENTOLATE 1% OPHTH SOLN 2ML BTL OS SCH; +LIDOCAINE 3.5 % 1ML OPHTH TOPICAL GEL OU ONE; +OFLOXACIN 0.3 % (OCUFLOX) OPTH SOL 5ML OS ONE; +PHENYLEPHRINE 10% OPHTH SOL 5ML OS PRN; +PHENYLEPHRINE 2.5% OPHTH SOL 2ML OS SCH; +TROPICAMIDE 1% OPHTH SOLN 15ML OS SCH; +VITA-256 PO
[2022-11-27] MEDS ORDERED: CEFUROXIME 1MG/0.1ML INTRACAMERAL INJ As Ordered ONE (06:47)
[2022-11-27] MEDS ORDERED: LIDOCAINE 1% SDV 5ML VIAL As Ordered ONE (06:47)
[2022-11-27] MEDS ORDERED: MIDAZOLAM INJ 2MG/2ML VIAL As Ordered ONE (07:10)
[2022-11-27] MEDS ORDERED: fentaNYL 100 MCG/2 ML INJECTION As Ordered ONE (07:11)
[2022-11-27] MEDS ORDERED: TOBRADEX OPHTH OINT 3.5 GM As Ordered ONE (08:43)
[2022-11-27 09:06] VITALS: BP 142/65; TEMP 96.9; O2SAT 95
== END 2022-11-27 09:26 | disposition home or self-care (01) ==
LOC: M SDC 06:04
PROVIDERS: ATTEND Ophthalmology
DX: H25.12 Age-related nuclear cataract, left eye (principal); I10 Essential (primary) hypertension; E78.5 Hyperlipidemia, unspecified; K44.9 Diaphragmatic hernia without obstruction or gangrene; F41.9 Anxiety disorder, unspecified; F32.A Depression, unspecified; K57.92 Diverticulitis of intestine, part unspecified, without perforation or abscess without bleeding; Z86.718 Personal history of other venous thrombosis and embolism; Z86.73 Personal history of transient ischemic attack (TIA), and cerebral infarction without residual deficits; J45.909 Unspecified asthma, uncomplicated; Z87.891 Personal history of nicotine dependence; Z91.041 Radiographic dye allergy status; Z91.040 Latex allergy status; Z91.018 Allergy to other foods; Z79.899 Other long term (current) drug therapy; Z92.21 Personal history of antineoplastic chemotherapy; Z88.0 Allergy status to penicillin
CPT/HCPCS: 66984; J0697; J2250; J3010; V2632

== ENCOUNTER 2023-01-10 15:07 | Emergency (ER) | payer MEDICARE ==
[~2023-01-10] VITALS: Ht 165.1 cm; Wt 64.9 kg
[~2023-01-10 15:07] MED LIST changes: -BSS IRRIG/VANCO(10MG)/TOBRA(5MG)/EPINEPH(1:1000-0.5CC)500ML BAG-ORONLY IR ONE; -CYCLOPENTOLATE 1% OPHTH SOLN 2ML BTL OS SCH; -LIDOCAINE 3.5 % 1ML OPHTH TOPICAL GEL OU ONE; -OFLOXACIN 0.3 % (OCUFLOX) OPTH SOL 5ML OS ONE; -PHENYLEPHRINE 10% OPHTH SOL 5ML OS PRN; -PHENYLEPHRINE 2.5% OPHTH SOL 2ML OS SCH; -TROPICAMIDE 1% OPHTH SOLN 15ML OS SCH
[2023-01-10 16:17] LABS: HEMATOCRIT 37.6 % (36.0-47.0); MEAN CORPUSCULAR HEMOGLOBIN 30.8 pg (27.0-33.0); MEAN CORPUSCULAR HGB CONC 31.9 g/dl (32.0-36.5); MEAN CORPUSCULAR VOLUME 96.7 fl (80.0-96.0); RED BLOOD COUNT 3.89 10^6/uL (4.00-5.40); WHITE BLOOD COUNT 4.4 10^3/uL (4.0-10.0)
[2023-01-10 16:39] LABS: ETHYL ALCOHOL (ETHANOL) < 0.003 % (0.000-0.010); PLATELET COUNT, AUTOMATED 95 10^3/uL (150-450)
[2023-01-10 16:41] LABS: ALBUMIN 3.4 G/DL (3.2-5.2); ALKALINE PHOSPHATASE 68 U/L (46-116); ALT/SGPT 28 U/L (7.0-40); AST/SGOT 20 U/L (<34); BILIRUBIN,DIRECT 0.3 MG/DL (<0.4); BILIRUBIN,TOTAL 0.8 MG/DL (0.3-1.2); BLOOD UREA NITROGEN 15 MG/DL (9-23); CALCIUM LEVEL 9.7 MG/DL (8.3-10.6); CARBON DIOXIDE LEVEL 29 MMOL/L (20-31); CHLORIDE LEVEL 108 MMOL/L (98-107); CREATININE FOR GFR 1.01 MG/DL (0.55-1.30); GLOMERULAR FILTRATION RATE 56.6 (>39); GLUCOSE, FASTING 95 MG/DL (74-106); POTASSIUM SERUM 4.7 MMOL/L (3.5-5.1); SALICYLATE LEVEL < 3.0 MG/DL (<30); SODIUM LEVEL 141 MMOL/L (136-145); TOTAL PROTEIN 6.1 G/DL (5.7-8.2)
[2023-01-10 16:43] LABS: THYROID STIMULATING HORMONE 1.412 uIU/ML (0.55-4.78)
[2023-01-10 16:50] LABS: AMPHETAMINES LEVEL URINE NEGATIVE (NEGATIVE); BARBITURATES URINE NEGATIVE (NEGATIVE); BENZODIAZEPINES URINE NEGATIVE (NEGATIVE); CANNABINOIDS URINE NEGATIVE (NEGATIVE); COCAINE METABOLITE URINE NEGATIVE (NEGATIVE); METHADONE URINE NEGATIVE (NEGATIVE); OPIATES URINE NEGATIVE (NEGATIVE); PHENCYCLIDINE URINE NEGATIVE (NEGATIVE)
[2023-01-10 20:27] VITALS: BP 146/67; TEMP 98.8; O2SAT 95
== END 2023-01-10 20:28 | disposition home or self-care (01) ==
LOC: EDBD 15:07 → M ED 15:07
DX: F32.9 Major depressive disorder, single episode, unspecified (principal); I10 Essential (primary) hypertension; Z86.73 Personal history of transient ischemic attack (TIA), and cerebral infarction without residual deficits; F41.9 Anxiety disorder, unspecified; Z91.018 Allergy to other foods; Z91.041 Radiographic dye allergy status; Z88.0 Allergy status to penicillin; Z88.2 Allergy status to sulfonamides; Z91.012 Allergy to eggs; Z91.040 Latex allergy status; Z79.899 Other long term (current) drug therapy

== ENCOUNTER → 2023-05-27 | Outpatient (REF) | payer MEDICARE | LOC: M LAB REF 17:59 | PROVIDERS: ATTEND Internal Medicine | DX: M81.0 Age-related osteoporosis without current pathological fracture (principal) ==

== ENCOUNTER → 2023-07-15 | Outpatient (CLI) | payer MEDICARE | LOC: M WHC 10:17 | PROVIDERS: ATTEND Internal Medicine | DX: M81.0 Age-related osteoporosis without current pathological fracture (principal); M85.89 Other specified disorders of bone density and structure, multiple sites ==

== ENCOUNTER → 2023-11-21 | Outpatient (REF) | payer MEDICARE ==
[~2023-11-21] MED LIST changes: +ONDA-282 PO; -ONDA4TAB6 PO
== END ==
LOC: M LAB REF 16:13
PROVIDERS: ATTEND Internal Medicine
DX: Z79.899 Other long term (current) drug therapy (principal)

== ENCOUNTER 2023-11-29 06:22 | Emergency (ER) | payer MEDICARE ==
[~2023-11-29] VITALS: Ht 160 cm; Wt 63.6 kg
[2023-11-29 09:30] VITALS: BP 161/69; TEMP 97.5; O2SAT 96
[2023-11-29 10:02] VITALS: O2SAT 98
== END 2023-11-29 10:03 | disposition home or self-care (01) ==
LOC: M ED 06:22
DX: S09.90XA Unspecified injury of head, initial encounter (principal); W19.XXXA Unspecified fall, initial encounter; E78.5 Hyperlipidemia, unspecified; I10 Essential (primary) hypertension; F32.A Depression, unspecified; M85.88 Other specified disorders of bone density and structure, other site; Z88.0 Allergy status to penicillin; Z88.2 Allergy status to sulfonamides; Z91.018 Allergy to other foods; Z91.040 Latex allergy status; Z91.048 Other nonmedicinal substance allergy status; Z79.01 Long term (current) use of anticoagulants; Z79.82 Long term (current) use of aspirin; Z79.02 Long term (current) use of antithrombotics/antiplatelets; Z79.811 Long term (current) use of aromatase inhibitors; Z79.899 Other long term (current) drug therapy; Y92.009 Unspecified place in unspecified non-institutional (private) residence as the place of occurrence of the external cause; Y93.89 Activity, other specified; Y99.9 Unspecified external cause status

== ENCOUNTER 2024-06-09 04:35 | Emergency (ER) | payer MEDICARE ==
[~2024-06-09] VITALS: Ht 165.1 cm; Wt 63.1 kg
[~2024-06-09 04:35] MED LIST changes: +DENO60SY2 IM; -PROL60SO IM
[2024-06-09 05:14] LABS: HEMATOCRIT 35.9 % (36.0-47.0); HEMOGLOBIN 11.6 g/dl (12.0-15.5); MEAN CORPUSCULAR HEMOGLOBIN 31.4 pg (27.0-33.0); MEAN CORPUSCULAR HGB CONC 32.3 g/dl (32.0-36.5); MEAN CORPUSCULAR VOLUME 97.3 fl (80.0-96.0); RED BLOOD COUNT 3.69 10^6/uL (4.00-5.40); WHITE BLOOD COUNT 3.7 10^3/uL (4.0-10.0)
[2024-06-09 05:26] LABS: INR 1.13; PARTIAL THROMBOPLASTIN TIME 27.2 SECONDS (24.8-34.2); PROTHROMBIN TIME 14.8 SECONDS (12.5-14.5)
[2024-06-09 05:39] LABS: CALCIUM LEVEL 9.5 MG/DL (8.3-10.6); CREATININE FOR GFR 0.94 MG/DL (0.55-1.30); GLOMERULAR FILTRATION RATE 62.1 (>39); POTASSIUM SERUM 4.5 MMOL/L (3.5-5.1)
[2024-06-09] MEDS: ACETAMINOPHEN *IV* 1,000 MG in IV 1 EA IV ONE (05:53)
[2024-06-09 07:23] VITALS: BP 157/71; TEMP 97; O2SAT 94
== END 2024-06-09 07:25 | disposition home or self-care (01) ==
LOC: EDBD 04:35 → M ED 04:35
DX: S09.90XA Unspecified injury of head, initial encounter (principal); W19.XXXA Unspecified fall, initial encounter; M48.061 Spinal stenosis, lumbar region without neurogenic claudication; M85.89 Other specified disorders of bone density and structure, multiple sites; M50.30 Other cervical disc degeneration, unspecified cervical region; K80.20 Calculus of gallbladder without cholecystitis without obstruction; E78.5 Hyperlipidemia, unspecified; I10 Essential (primary) hypertension; J45.909 Unspecified asthma, uncomplicated; K57.30 Diverticulosis of large intestine without perforation or abscess without bleeding; F41.9 Anxiety disorder, unspecified; F32.A Depression, unspecified; Z86.73 Personal history of transient ischemic attack (TIA), and cerebral infarction without residual deficits; Z79.82 Long term (current) use of aspirin; Z79.83 Long term (current) use of bisphosphonates; Z79.899 Other long term (current) drug therapy; Z88.0 Allergy status to penicillin; Z88.2 Allergy status to sulfonamides; Z91.012 Allergy to eggs; Z91.040 Latex allergy status; Z91.018 Allergy to other foods; Z91.041 Radiographic dye allergy status; Z79.01 Long term (current) use of anticoagulants
CPT/HCPCS: 70450; 72125; 72131; 80048; 85027; 85610; 85730; 96365; 96366; 99284; J0131

== ENCOUNTER → 2024-06-17 | Outpatient (REF) | payer MEDICARE | LOC: M LAB REF 13:49 | PROVIDERS: ATTEND Internal Medicine | DX: Z79.899 Other long term (current) drug therapy (principal) ==

== ENCOUNTER 2024-09-05 08:22 | Emergency (ER) | payer MEDICARE ==
[~2024-09-05] VITALS: Ht 162.6 cm; Wt 59.7 kg
[2024-09-05 08:36] VITALS: BP 140/68; TEMP 96.9; O2SAT 97
[2024-09-05 11:01] LABS: BASO # 0.0 10^3/uL (0.0-0.2); BASO % 0.6 % (0.0-1.0); EOS # 0.2 10^3/uL (0.0-0.5); EOS % 6.3 % (0.0-3.0); LYMPH # 0.4 10^3/uL (1.5-5.0); LYMPH % 12.9 % (24.0-44.0); MONO # 0.3 10^3/uL (0.0-0.8); MONO % 9.6 % (2.0-8.0); NEUTROPHILS # 2.3 10^3/uL (1.5-8.5); NEUTROPHILS % 70.3 % (36.0-66.0)
[2024-09-05 11:22] LABS: CALCIUM LEVEL 9.6 MG/DL (8.3-10.6); CARBON DIOXIDE LEVEL 29.0 MMOL/L (20-31); CHLORIDE LEVEL 106.0 MMOL/L (98-107); CREATININE FOR GFR 1.05 MG/DL (0.55-1.30); GLOMERULAR FILTRATION RATE 54.1 (>39); POTASSIUM SERUM 4.3 MMOL/L (3.5-5.1); SODIUM LEVEL 143.0 MMOL/L (136-145)
[2024-09-05 11:33] LABS: PLATELET COUNT, AUTOMATED 79 10^3/uL (150-450)
== END 2024-09-05 13:49 | disposition home or self-care (01) ==
LOC: M ED 08:22
DX: S09.90XA Unspecified injury of head, initial encounter (principal); S90.31XA Contusion of right foot, initial encounter; S60.222A Contusion of left hand, initial encounter; W01.198A Fall on same level from slipping, tripping and stumbling with subsequent striking against other object, initial encounter; M50.31 Other cervical disc degeneration, high cervical region; F41.9 Anxiety disorder, unspecified; F32.A Depression, unspecified; M19.032 Primary osteoarthritis, left wrist; M19.071 Primary osteoarthritis, right ankle and foot; K59.00 Constipation, unspecified; Z79.82 Long term (current) use of aspirin; Z79.899 Other long term (current) drug therapy; Z79.02 Long term (current) use of antithrombotics/antiplatelets; Z88.0 Allergy status to penicillin; Z88.2 Allergy status to sulfonamides; Z91.018 Allergy to other foods; Z91.041 Radiographic dye allergy status; Z91.040 Latex allergy status; Z91.012 Allergy to eggs

== ENCOUNTER 2024-09-15 07:31 | Inpatient (IN) | payer MEDICARE ==
[~2024-09-15] VITALS: Ht 162.6 cm; Wt 56.8 kg
[2024-09-15 08:45] LABS: PLATELET COUNT, AUTOMATED 117 10^3/uL (150-450)
[2024-09-15 09:13] LABS: INR 1.13
[2024-09-15 09:16] LABS: ALT/SGPT 27.0 U/L (7.0-40); AST/SGOT 47.0 U/L (<34); CALCIUM LEVEL 9.5 MG/DL (8.3-10.6); CARBON DIOXIDE LEVEL 29.0 MMOL/L (20-31); CHLORIDE LEVEL 107.0 MMOL/L (98-107); CK-MB VALUE MASS 1.0 NG/ML (<3.6); CREATININE FOR GFR 0.92 MG/DL (0.55-1.30); GLOMERULAR FILTRATION RATE 63.3 (>39); MAGNESIUM LEVEL 2.3 MG/DL (1.8-2.4); PHOSPHORUS LEVEL 2.1 MG/DL (2.4-5.1); POTASSIUM SERUM 5.4 MMOL/L (3.5-5.1); SODIUM LEVEL 143.0 MMOL/L (136-145)
[2024-09-15 09:18] LABS: CPK CREATINE PHOSPHOKINASE 44.0 U/L (34-145); FREE T4 0.96 NG/DL (0.89-1.76); MB/CK RELATIVE INDEX 2.27 (< OR =4)
[2024-09-15 09:38] LABS: BASOPHILS 1 % (0-1); EOSINOPHILS 8 % (0-3); LYMPHOCYTES 17 % (16-44); MONOCYTES 2 % (0-5); NEUTROPHILS 72 % (28-66)
[2024-09-15 09:40] LABS: PLATELET ESTIMATE DECREASED (NORMAL)
[2024-09-15] MEDS: HumuLIN R (REGULAR) INSULIN (NovoLIN R) **100 U/ML** PER UNIT IV ONE (11:31)
[2024-09-15] MEDS: DEXTROSE 50% 50 ML SYRINGE IV STA (11:31)
[2024-09-15] MEDS: CALCIUM GLUCONATE 1,000 MG in DEXTROSE 5% (D5W) MINI-BAG PLU 100 ML IV ONE (11:32)
[2024-09-15 12:10] LABS: KETONE, URINE AUTO RFX NEGATIVE (NEGATIVE); MUCUS, URINE RFX SMALL (NEGATIVE); RBC, URINE AUTO RFX 5 /HPF (0-3); SQUAM EPITHELIAL CELL UR AURFX 5 /HPF (0-6)
[2024-09-15 12:14] LABS: LEUKOCYTE ESTERASE UR AUTO RFX 3+ (NEGATIVE); NITRITE, URINE AUTO RFX POSITIVE (NEGATIVE); WBC, URINE AUTO RFX 53 /HPF (0-3)
[2024-09-15 12:59] LABS: INR 1.16
[2024-09-15] MEDS ORDERED: ACET-907 PO (13:08)
[2024-09-15] MEDS ORDERED: HOME MED LIST COMPLETE! XX SCH (13:20)
[2024-09-15] MEDS: cefTRIAXone SOD 1 GM in DEXTROSE 5% (D5W) ADV/MINI-BAG 50 ML IV SCH (15:56)
[2024-09-15] MEDS: ASPIRIN 81 MG ENTERIC TABLET PO SCH (15:57)
[2024-09-15] MEDS: FOLIC ACID 1 MG TAB PO SCH (15:57)
[2024-09-15] MEDS: CLOPIDOGREL 75 MG TAB PO SCH (15:59)
[2024-09-15] MEDS: LOSARTAN 50 MG TABLET PO SCH (15:59)
[2024-09-15 16:00] VITALS: BP 152/65; TEMP 97.2; O2SAT 98
[2024-09-15] MEDS: ENOXAPARIN 40 MG/0.4 ML SYRINGE (J1650 PER 10MG) SC SCH (16:13)
[2024-09-15] MEDS: MAGNESIUM OXIDE 400 MG TAB PO SCH (16:13)
[2024-09-15 18:00] VITALS: BP 151/65; TEMP 97.5; O2SAT 94
[2024-09-15 20:36] VITALS: BP 143/65; TEMP 97.3; O2SAT 96
[2024-09-15] MEDS: ATORVASTATIN 10 MG TAB PO SCH (21:16)
[2024-09-15] MEDS: ACETAMINOPHEN 325 MG TAB PO PRN (21:17)
[2024-09-16 04:55] VITALS: BP 181/85; TEMP 96.8; O2SAT 96
[2024-09-16 05:10] VITALS: BP 160/75
[2024-09-16 07:35] LABS: ALT/SGPT 26.0 U/L (7.0-40); AST/SGOT 43.0 U/L (<34); CALCIUM LEVEL 9.7 MG/DL (8.3-10.6); CARBON DIOXIDE LEVEL 23.0 MMOL/L (20-31); CHLORIDE LEVEL 106.0 MMOL/L (98-107); CREATININE FOR GFR 0.89 MG/DL (0.55-1.30); GLOMERULAR FILTRATION RATE 65.9 (>39); POTASSIUM SERUM 5.2 MMOL/L (3.5-5.1); SODIUM LEVEL 142.0 MMOL/L (136-145)
[2024-09-16 07:46] VITALS: BP 162/76; TEMP 97.5; O2SAT 95
[2024-09-16 08:10] LABS: PLATELET COUNT, AUTOMATED 113 10^3/uL (150-450)
[2024-09-16] MEDS: PATIROMER SORBITEX CALCIUM 8.4GM POWDER PACKET PO ONE (08:18)
[2024-09-16] MEDS: amLODIPine 5 MG TAB PO SCH (08:19)
[2024-09-16] MEDS: traMADol 50 MG TAB PO PRN (08:22)
[2024-09-16 12:00] VITALS: BP 138/70; TEMP 97.5; O2SAT 96
[2024-09-16 20:13] VITALS: BP 136/69; TEMP 97.7; O2SAT 93
[2024-09-17 00:19] VITALS: BP 123/96; TEMP 97; O2SAT 95
[2024-09-17 06:33] LABS: PLATELET COUNT, AUTOMATED 99 10^3/uL (150-450)
[2024-09-17 06:46] LABS: ALT/SGPT 19.0 U/L (7.0-40); AST/SGOT 24.0 U/L (<34); CALCIUM LEVEL 9.6 MG/DL (8.3-10.6); CARBON DIOXIDE LEVEL 27.0 MMOL/L (20-31); CHLORIDE LEVEL 107.0 MMOL/L (98-107); CREATININE FOR GFR 0.87 MG/DL (0.55-1.30); GLOMERULAR FILTRATION RATE 67.7 (>39); POTASSIUM SERUM 4.3 MMOL/L (3.5-5.1); SODIUM LEVEL 142.0 MMOL/L (136-145)
[2024-09-18 05:34] VITALS: BP 141/58; TEMP 97.2; O2SAT 94
[2024-09-18 06:48] LABS: PLATELET COUNT, AUTOMATED 88 10^3/uL (150-450)
[2024-09-18 07:04] LABS: ALT/SGPT 20.0 U/L (7.0-40); AST/SGOT 32.0 U/L (<34); CALCIUM LEVEL 9.6 MG/DL (8.3-10.6); CARBON DIOXIDE LEVEL 21.0 MMOL/L (20-31); CHLORIDE LEVEL 109.0 MMOL/L (98-107); CREATININE FOR GFR 0.84 MG/DL (0.55-1.30); GLOMERULAR FILTRATION RATE 70.6 (>39); POTASSIUM SERUM 4.5 MMOL/L (3.5-5.1); SODIUM LEVEL 142.0 MMOL/L (136-145)
[2024-09-18] MEDS: METHOTREXATE 2.5 MG TAB PO SCH (09:07)
[2024-09-18] MEDS: CEFDINIR 300 MG CAP PO SCH (09:08)
[2024-09-19 04:08] VITALS: BP 140/91; TEMP 97; O2SAT 97
[2024-09-20 04:15] VITALS: BP 139/80; TEMP 97; O2SAT 95
[2024-09-20 12:00] VITALS: BP 142/78; TEMP 97.3
[2024-09-21 04:05] VITALS: BP 142/77; TEMP 97; O2SAT 95
[2024-09-21 12:00] VITALS: TEMP 97; O2SAT 96
[2024-09-22 06:20] VITALS: BP 132/71; TEMP 97; O2SAT 94
[2024-09-22 08:05] VITALS: BP 133/66
[2024-09-22 12:00] VITALS: BP 136/74; TEMP 97.2; O2SAT 96
== END 2024-09-22 13:20 | DRG 536 ==
LOC: EDBD 07:31 → M ED 07:31 → M ED INP 11:51 → M MS5PR 13:52
PROVIDERS: ADMIT Internal Medicine; ATTEND Student in an Organized Health Care Education/Training Program
DX: S32.591A Other specified fracture of right pubis, initial encounter for closed fracture (principal); N39.0 Urinary tract infection, site not specified; D61.818 Other pancytopenia; M06.9 Rheumatoid arthritis, unspecified; I10 Essential (primary) hypertension; I73.9 Peripheral vascular disease, unspecified; M81.0 Age-related osteoporosis without current pathological fracture; E78.5 Hyperlipidemia, unspecified; R29.6 Repeated falls; R53.1 Weakness; Z74.01 Bed confinement status; E87.5 Hyperkalemia; E83.42 Hypomagnesemia; B96.20 Unspecified Escherichia coli [E. coli] as the cause of diseases classified elsewhere; Z85.038 Personal history of other malignant neoplasm of large intestine; F32.A Depression, unspecified; Z87.891 Personal history of nicotine dependence; W18.30XA Fall on same level, unspecified, initial encounter; Y92.009 Unspecified place in unspecified non-institutional (private) residence as the place of occurrence of the external cause

== ENCOUNTER → 2024-10-07 | Outpatient (REF) | payer MEDICARE ==
[~2024-10-07] MED LIST changes: +ACET-907 PO
== END ==
LOC: M SOG 06:46 → EDSTATUS 08:31
PROVIDERS: ATTEND Orthopaedic Surgery
DX: Z53.9 Procedure and treatment not carried out, unspecified reason (principal)

== ENCOUNTER → 2024-11-25 | Outpatient (CLI) | payer MEDICARE | LOC: M RAD 14:29 | PROVIDERS: ATTEND Orthopaedic Surgery | DX: S32.591D Other specified fracture of right pubis, subsequent encounter for fracture with routine healing (principal) ==

== ENCOUNTER → 2024-12-14 | Outpatient (REF) | payer MEDICARE, MEDICAID | LOC: SKLAB2 08:48 | PROVIDERS: ATTEND Family Medicine | DX: R06.02 Shortness of breath (principal) ==